=== PATIENT | female | born 1960 | race Asian ===

== ENCOUNTER 2017-09-17 15:45 | Inpatient (IN) | payer OTHER ==
[~2017-09-17] VITALS: Ht 162.6 cm; Wt 60.2 kg
[2017-09-17 17:40] VITALS: BP 164/84; RESP 17
[2017-09-17 17:41] VITALS: PULSE 66
[2017-09-17] MEDS ORDERED: HYDROCODONE/APAP (5/325) TAB PO PRN (19:30)
[2017-09-17] MEDS ORDERED: morphine 2 MG INJ IV PRN (19:30)
[2017-09-17] MEDS ORDERED: ZOLPIDEM 5 MG TAB PO PRN (19:30)
[2017-09-17] MEDS ORDERED: NACL 0.9% 3 ML SYG IV SCH (19:30)
[2017-09-17 19:51] VITALS: BP 167/90; RESP 17
[2017-09-17 20:04] VITALS: PULSE 62
[2017-09-17] MEDS: ATORVASTATIN 80 MG TAB PO SCH (22:05)
[2017-09-17] MEDS: ENOXAPARIN 40 MG/0.4 ML SYG SC SCH (22:07)
[2017-09-17] MEDS: SOD CHLORIDE 0.45% 1,000 ML IV SCH (22:09)
[2017-09-18] VITALS (12 sets, daily range): BP systolic 138–167; BP diastolic 75–91; PULSE 60–79; RESP 17–18
[2017-09-18] MEDS ORDERED: ASPIRIN 81 MG TAB PO ONE ×2 (04:00→04:17)
[2017-09-18] MEDS: ACETAMINOPHEN 325 MG TAB PO PRN (04:05)
--- NOTE | 2017-09-18 04:49 | RADRPT ---
AMENDMENT: 09/18/2017 7:52:32 AM Sophia Naik M.d Results were called to [place] at 09/18/2017 4:52 AM PROCEDURE: CT Brain without contrast. CLINICAL INDICATION: Right-sided weakness TECHNIQUE: A CT of the brain was performed on a GE 64-slice CT scanner utilizing axial imaging fr om the skull base through the vertex without IV contrast. Multiplanar reformatted images were made. Images were reviewed on a PACS workstation. The CTDIvol is 45.01 mGy and the DLP is 720.23 mGycm. One or more of the following dose reduction techniques were used: automated exposure control, adju stment of the mA and/or kV according to patient size, or use of iterative reconstruction technique. COMPARISON: None FINDINGS: Focal hypodensity is seen in the posterior left basal ganglia. There is no intracranial hemorrhage, mass effect, or midline shift. No extra-axial fluid collection is seen. The ventricles and sulci ar e normal in size and configuration. The rodrigues white matter differentiation appears well-preserved. Th e brainstem and posterior fossa are normal. There is deformity of the right lamina papyracea. Mild maxillary sinus mucosal thickening is noted. The calvarium is intact. IMPRESSION: 1. Probable subacute left basal ganglia infarct. No evidence of intracranial hemorrhage. RPTAT: HCNS Physician Carissa Date Time Electronically viewed and signed by Physician Carissa on 09/18/2017 04:52 /
--- NOTE | 2017-09-18 07:35 | HP ---
Date/Time of Note Date/Time of Note DATE: 09/18/17 TIME: 07:27 Assessment/Plan VTE Prophylaxis VTE Prophylaxis Intervention: heparin Lines/Catheters [facility] Saline Lock Urinary Cath still in place: No Assessment/Plan Assessment/Plan 1. Acute left-sided CVA, with mild right upper and lower extremity weakness and slight decreased sensation to light touch -Aspirin, statin, subcutaneous heparin for DVT prophylaxis -MRI of the brain and bilateral carotid Doppler ultrasound and a 2D echo -Physical therapy evaluation -Neurology consult -Blood pressure has been in the 160s/90. Given symptoms started about 24 hours ago, can safely use BP meds if blood pressure is not controlled HPI/ROS Admit Date/Time Admit Date/Time Sep 17, 2017 at 17:27 Hx of Present Illness This is a 57-year-old female with no significant past medical history who initially presented to an outside hospital complaining of dizziness/ lightheadedness and right upper and lower extremity weakness 1 day. Denied facial droop, slurred speech or visual disturbance. Her son who is at the bedside however stated that yesterday morning he noticed slight slurred speech when he spoke over the phone. Patient was transferred to [facility] because of insurance reasons. Head CT at the outside hospital showed no acute findings. Once patient was admitted here, per nursing she had some facial asymmetry and complaints of worsening right-sided weakness. Head CT obtained at that time which showed a small subacute left basal ganglia infarct. PMH/Family/Social Past Medical History Medical History: no pertinent history Past Surgical History Past Surgical Hx: no surgical history Social History Alcohol Use: none Smoking Status: Current every day smoker Drug Use: none Exam/Review of Systems Vital Signs Vitals Vital Signs Date Time Temp Pulse Resp B/P Pulse Ox O2 Delivery O2 Flow Rate FiO2 09/18/17 07:00 98.4 68 17 165/86 94 Exam Constitutional: alert, oriented, well developed Head: atraumatic, normocephalic Eyes: EOMI, PERRL Respiratory: clear to auscultation, normal air movement Cardiovascular: nl pulses, regular rate and rhythm Gastrointestinal: non-tender, soft Extremities: normal pulses Neurological: other (Slightly decreased strength and slight decreased sensation to light touch on both upper and lower extremity. 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.) Labs Result Diagram: 09/18/17 0536 09/18/17 0536 Medications Medications Current Medications Sodium Chloride (1/2 NS) 1,000 ml @ 100 mls/hr Q10H IV Last administered on 22:09; Admin Dose 100 MLS/HR; Start 09/17/17 at 19:22 Ondansetron HCl (Zofran Inj) 4 mg Q6H PRN IV NAUSEA AND/OR VOMITING; Start at 19:30 Acetaminophen (Tylenol Tab) 650 mg Q6H PRN PO PAIN LEVEL 1-3 OR FEVER Last administered on 09/18/17 04:05; Admin Dose 650 MG; Start 09/17/17 at 19:30 Acetaminophen/ Hydrocodone Bitart ([place] (5/325)) 1 tab Q6H PRN PO MODERATE PAIN LEVEL 4-6; Start 09/17/17 at 19:30 Morphine Sulfate (morphine) 2 mg Q4H PRN IV SEVERE PAIN LEVEL 7-10; Start at 19:30 Zolpidem Tartrate (Ambien) 5 mg QHS PRN PO SLEEP; Start 09/17/17 at 19:30 Enoxaparin Sodium (Lovenox) 40 mg DAILY@21 SC Last administered on 09/17/17 22:07; Admin Dose 40 MG; Start 09/17/17 at 21:00 Aspirin (Ecotrin) 325 mg DAILY PO ; Start 09/18/17 at 09:00 Atorvastatin Calcium (Lipitor) 80 mg HS PO Last administered on 09/17/17 22: 05; Admin Dose 80 MG; Start 09/17/17 at 21:00 Aspirin (Halfprin) 81 mg DAILY PO ; Start 09/19/17 at 09:00 MAG TORRES MD Sep 18, 2017 07:35
[2017-09-18] MEDS: SOD CHLORIDE 0.45% 1,000 ML IV SCH ×2 (09:00→15:22)
--- NOTE | 2017-09-18 10:31 | RADRPT ---
PROCEDURE: US carotid arteries. CLINICAL INDICATION: Dizziness. Cerebrovascular accident. Right-sided weakness. TECHNIQUE: Multiple sonographic images of the carotid arteries and vertebral arteries were obtaine d utilizing rodrigues scale, duplex, and color-flow imaging. The images were reviewed on a PACS workstati on. COMPARISON: No prior studies are available for comparison. FINDINGS: Evaluation of the right carotid bifurcation region reveals mild atherosclerotic disease. Evaluation of the left carotid bifurcation region reveals mild atherosclerotic disease. There is antegrade flow within the vertebral arteries bilaterally. RIGHT CAROTID MEASUREMENTS: Common Carotid [id number] (cm/sec) Internal Carotid Artery 57 (cm/sec) External Carotid Artery 65 (cm/sec) Vertebral Artery 50 (cm/sec) Internal Carotid/Common Carotid1.1 LEFT CAROTID MEASUREMENTS: Common Carotid [id number] (cm/sec) Internal Carotid Artery 62 (cm/sec) External Carotid Artery 31 (cm/sec) Vertebral Artery 40 (cm/sec) Internal Carotid/Common Carotid1.1 Validated velocity measurements with angiographic measurements. Velocity criteria are extrapolated f rom diameter data as defined by the Society of Radiologists in Ultrasound Consensus Conference. Radi ology 2003; 229;340-346. This study does indirectly reference the measurement of the distal ICA ganga meter as the denominator for stenosis measurement. IMPRESSION: 1. Less than 50% stenosis bilaterally in the internal carotid arteries. 2. Normal antegrade flow in the vertebral arteries bilaterally. RPTAT: QQ SRU Consensus Conference Criteria for the Diagnosis of Carotid Artery Stenosis* Degree of Stenosis, % ICA PSV, cm/sec Plaque Estimate, % ICA/CCA PSV Ratio Normal <125 None <2.0 <50 <125 <50 <2.0 50 69 125-230 >50 2.0-4.0 >70 but less than near occlusion >230 >50 <4.0 Near occlusion High, low, or undetectable Visible Variable Total occlusion Undetectable Visible, no detectable lumen Not applicable *Cartoid artery stenosis: rodrigues-scale and Doppler US diagnosis. Society of Radiologists in Ultrasound Consensus Conference. Radiology 2003; 229: 340-346 .Aayush John MD, Date Time Electronically viewed and signed by .Aayush John MD, on 09/18/2017 10:31 .R/
[2017-09-18] MEDS: ASPIRIN (EC) 325 MG TAB PO SCH (10:56)
--- NOTE | 2017-09-18 11:03 | PN ---
Date/Time of Note Date/Time of Note DATE: 09/18/17 TIME: 10:59 Assessment/Plan VTE Prophylaxis VTE Prophylaxis Intervention: LMWH Lines/Catheters IV [facility]ter Type (from [facility] Saline Lock Urinary Cath still in place: No Assessment/Plan Chief Complaint/Hosp Course 57-year-old female with no significant past medical history who was transferred from OSH for dizziness/lightheadedness/right upper and lower extremity weakness 1 day duration. 1.Probable subacute left basal ganglia infarct. No evidence of intracranial hemorrhage. -Continue with the full stroke workup including MRI/MRI brain, MRA neck and 2D echocardiogram. -PT/OT/ST eval and treatment. -Aspirin/statin/diabetic management. Goal blood pressure ~140/90 -Neurology consult. 2. Adult onset diabetes. A1c 7.2. -Accu-Cheks/insulin in-house. -Metformin upon discharge. Carb controlled diet, diabetic education. 3. Dyslipidemia. -Continue statin. Prophylaxis: Lovenox. Patient was seen in collaboration with . Problems: Subjective 24 Hr Interval Summary Free Text/Dictation Patient lying in bed. She denies any speech difficulties, facial asymmetry, vision changes or headache. Patient continued to have right lower extremity weakness. Right upper extremity weakness improved, however with a weak proposal development manager. Exam/Review of Systems Vital Signs Vitals Vital Signs Date Time Temp Pulse Resp B/P Pulse Ox O2 Delivery O2 Flow Rate FiO2 09/18/17 07:00 98.4 68 17 165/86 94 Intake and Output 09/17/17 09/17/17 09/18/17 15:00 23:00 07:00 Intake Total 1120 ml Balance 1120 ml Exam General: Well developed,adequately built female, not in any acute distress . HEENT: Normocephalic, Atraumatic, No laceration or hematoma; Eyes: PEERL, Conjunctiva clear, Anicteric sclera Neck: Supple without any lymphadenopathy, nontender, no JVD, no carotid bruits, trachea midline, no thyromegaly Cardiac: S1, S2 auscultated, regular rhythm and rate, no mumurs or gallop Pulmonary: Normal respiratory effort. Chest clear to auscultation bilaterally, no adventitious breath sounds GI: Abdomen normal to inspection. Soft, non tender, non- distended, no masses, no rebound tenderness or guarding. Bowel sounds active on all four quadrants Genitourinary: Deferred Extremities: Right lower extremity 4 out of 5. Right upper extremity with weak proposal development manager. No cyanosis, clubbing, or edema. Pulses [2+] bilaterally. Full ROM on all four extremities. Neurologic: Alert to person, place, time, and situation. Affect appropriate, intact sensation. Skin: Clean,dry, and intact. No ecchymosis, no rashes, or lesions Results Result Diagram: 09/18/1736 09/18/17 0536 Results 24 hrs Laboratory Tests Test 09/18/17 05:36 White Blood Count 9.7 Red Blood Count 4.46 Hemoglobin 13.0 Hematocrit 39.4 Mean Corpuscular Volume 88.3 Mean Corpuscular Hemoglobin 29.1 Mean Corpuscular Hemoglobin Concent 33.0 Red Cell Distribution Width 11.9 Platelet Count 286 Mean Platelet Volume 10.1 Neutrophils % 74.2 Lymphocytes % 14.6 L Monocytes % 8.0 Eosinophils % 2.4 Basophils % 0.5 Nucleated Red Blood Cells % 0.0 Neutrophils # 7.2 Lymphocytes # 1.4 Monocytes # 0.8 Eosinophils # 0.2 Basophils # 0.1 Nucleated Red Blood Cells # 0.0 Sodium Level 140 Potassium Level 3.7 Chloride Level 104 Carbon Dioxide Level 26 Anion Gap 14 Blood Urea Nitrogen 16 Creatinine 0.49 Glucose Level 158 Hemoglobin A1c 7.2 H Calcium Level 9.2 Phosphorus Level 4.6 Magnesium Level 1.9 Triglycerides Level 138 Cholesterol Level 213 H LDL Cholesterol, Calculated 134 HDL Cholesterol 51 Cholesterol/HDL Ratio 4.1 Medications Medications Current Medications Sodium Chloride (1/2 NS) 1,000 ml @ 100 mls/hr Q10H IV Last administered on 09:00; Admin Dose 100 MLS/HR; Start 09/17/17 at 19:22 Ondansetron HCl (Zofran Inj) 4 mg Q6H PRN IV NAUSEA AND/OR VOMITING; Start at 19:30 Acetaminophen (Tylenol Tab) 650 mg Q6H PRN PO PAIN LEVEL 1-3 OR FEVER Last administered on 09/18/17 04:05; Admin Dose 650 MG; Start 09/17/17 at 19:30 Acetaminophen/ Hydrocodone Bitart ([place] (5/325)) 1 tab Q6H PRN PO MODERATE PAIN LEVEL 4-6; Start 09/17/17 at 19:30 Morphine Sulfate (morphine) 2 mg Q4H PRN IV SEVERE PAIN LEVEL 7-10; Start at 19:30 Zolpidem Tartrate (Ambien) 5 mg QHS PRN PO SLEEP; Start 09/17/17 at 19:30 Enoxaparin Sodium (Lovenox) 40 mg DAILY@21 SC Last administered on 09/17/17 22:07; Admin Dose 40 MG; Start 09/17/17 at 21:00 Aspirin (Ecotrin) 325 mg DAILY PO Last administered on 09/18/17 10:56; Admin Dose 325 MG; Start 09/18/17 at 09:00 Atorvastatin Calcium (Lipitor) 80 mg HS PO Last administered on 09/17/17 22: 05; Admin Dose 80 MG; Start 09/17/17 at 21:00 Aspirin (Halfprin) 81 mg DAILY PO ; Start 09/19/17 at 09:00 PINEDA ERAZO NP Sep 18, 2017 11:03
--- NOTE | 2017-09-18 13:07 | CONS ---
Date/Time of Note Date/Time of Note DATE: 09/18/17 TIME: 13:02 Assessment/Plan Assessment/Plan Chief Complaint/Hosp Course 57 yo female with motor/sensory weakness with sub-acute left basal ganglia stroke. New onset DM. LDL 134 HBA1C 7/2% Recommendations: SBP less than 140/90 MRI Brain w/o contrast ASA 81 mg daily Diabetes education will require oral meds Lipitor 80 mg qhs ECHO w bubble PT/OT/Speech DVT ppx Problems: Consultation Date/Type/Reason Admit Date/Time Sep 17, 2017 at 17:27 Date of Consultation: Sep 18, 2017 Type of Consultation: Neurology Reason for Consultation CVA eval Referring Provider: PINEDA ERAZO NP Hx of Present Illness 57 yo female with no significant past medical history initially presented to an outside hospital c/o dizziness and LH with RUE and RLE weakness over 1 day. She felt like she was going to pass out described only weakness to right arm and leg , w gait imbalance, no dysphagia reported. She went to [facility] first and was tx here for further care. CTH showed subacute left basal ganglia stroke. right arm and leg weakness Past Medical History Medical History: no pertinent history Past Surgical History Past Surgical Hx: no surgical history Social History Alcohol Use: none Smoking Status: Current every day smoker Drug Use: none Exam/Review of Systems Vital Signs Vitals Vital Signs Date Time Temp Pulse Resp B/P Pulse Ox O2 Delivery O2 Flow Rate FiO2 09/18/17 11:15 97.9 72 17 167/84 97 Intake and Output 09/17/17 09/17/17 09/18/17 15:00 23:00 07:00 Intake Total 1120 ml Balance 1120 ml Exam Constitutional: alert, oriented, well developed Neurological: FLYING SHEAR OPERATOR II-XII intact (awake and alert oriented x3 follows commands no aphasia, CN: EOMI intact, VFF, right NLF flat palate upgoing uvula midline scm/trap intact Motor: right arm drift and right leg drift 4 +/5 strength l eft arm and leg are intact) Results Result Diagram: 09/18/17 0536 09/18/17 0536 Results 24 hrs Laboratory Tests Test 09/18/17 05:36 White Blood Count 9.7 Red Blood Count 4.46 Hemoglobin 13.0 Hematocrit 39.4 Mean Corpuscular Volume 88.3 Mean Corpuscular Hemoglobin 29.1 Mean Corpuscular Hemoglobin Concent 33.0 Red Cell Distribution Width 11.9 Platelet Count 286 Mean Platelet Volume 10.1 Neutrophils % 74.2 Lymphocytes % 14.6 L Monocytes % 8.0 Eosinophils % 2.4 Basophils % 0.5 Nucleated Red Blood Cells % 0.0 Neutrophils # 7.2 Lymphocytes # 1.4 Monocytes # 0.8 Eosinophils # 0.2 Basophils # 0.1 Nucleated Red Blood Cells # 0.0 Sodium Level 140 Potassium Level 3.7 Chloride Level 104 Carbon Dioxide Level 26 Anion Gap 14 Blood Urea Nitrogen 16 Creatinine 0.49 Glucose Level 158 Hemoglobin A1c 7.2 H Calcium Level 9.2 Phosphorus Level 4.6 Magnesium Level 1.9 Triglycerides Level 138 Cholesterol Level 213 H LDL Cholesterol, Calculated 134 HDL Cholesterol 51 Cholesterol/HDL Ratio 4.1 Thyroid Stimulating Hormone (TSH) 1.920 Medications Medications Current Medications Sodium Chloride (1/2 NS) 1,000 ml @ 100 mls/hr Q10H IV Last administered on 09:00; Admin Dose 100 MLS/HR; Start 09/17/17 at 19:22 Ondansetron HCl (Zofran Inj) 4 mg Q6H PRN IV NAUSEA AND/OR VOMITING; Start at 19:30 Acetaminophen (Tylenol Tab) 650 mg Q6H PRN PO PAIN LEVEL 1-3 OR FEVER Last administered on 09/18/17 04:05; Admin Dose 650 MG; Start 09/17/17 at 19:30 Acetaminophen/ Hydrocodone Bitart ([place] (5/325)) 1 tab Q6H PRN PO MODERATE PAIN LEVEL 4-6; Start 09/17/17 at 19:30 Morphine Sulfate (morphine) 2 mg Q4H PRN IV SEVERE PAIN LEVEL 7-10; Start at 19:30 Zolpidem Tartrate (Ambien) 5 mg QHS PRN PO SLEEP; Start 09/17/17 at 19:30 Enoxaparin Sodium (Lovenox) 40 mg DAILY@21 SC Last administered on 09/17/17 22:07; Admin Dose 40 MG; Start 09/17/17 at 21:00 Aspirin (Ecotrin) 325 mg DAILY PO Last administered on 09/18/17 10:56; Admin Dose 325 MG; Start 09/18/17 at 09:00 Atorvastatin Calcium (Lipitor) 80 mg HS PO Last administered on 09/17/17t 22: 05; Admin Dose 80 MG; Start 09/17/17 at 21:00 Aspirin (Halfprin) 81 mg DAILY PO ; Start 09/19/17 at 09:00 JOCELYNN ZENG MD Sep 18, 2017 13:06
--- NOTE | 2017-09-18 19:12 | RADRPT ---
PROCEDURE: MR Brain with and without intravenous contrast CLINICAL INDICATION: Concern for cerebrovascular accident. COMPARISON: CT 09/18/2017. TECHNIQUE: Multiplanar multi-sequence images of the brain were obtained before and after the unevent ful administration of 10 mL Magnevist intravenous contrast. Images acquired on a 3.0 Linda magnet. FINDINGS: Parenchyma: Restricted diffusion within the posterior limb left internal capsule, and dorsal globus pallidus, dorsal putamen, and posterior body of the corpus callosum, consistent with acute infarctio n in the left lateral lenticulostriate artery territory (an M1 artery branch). No hemorrhage or suspicious enhancement. Possible developmental venous anomaly in the right cerebell ar hemisphere. Ventricles: No ventricular enlargement or ventricular effacement. Extra-axial spaces: No herniation or midline shift. Orbits: Old fracture of the right lamina papyracea. Major intracranial flow voids: Preserved. Paranasal sinuses: Clear. Mastoids and middle ears: Clear. Bones: Normal. Extracranial soft tissues: Normal. Additional comment: None. IMPRESSION: 1. Acute infarction in the left basal ganglia. 2. No acute hemorrhage. Jone Carbone M.D. discussed critical results with the covering nurse via telephone at 7:09 PM on with read back confirmation. RPTAT: PP Physician Van Date Time Electronically viewed and signed by Physician Van on 09/19/2017 09:40 LG/
--- NOTE | 2017-09-18 19:13 | RADRPT ---
PROCEDURE: MR neck angiogram without contrast CLINICAL INDICATION: Acute infarction. COMPARISON: MRI and CT 09/18/2017. TECHNIQUE: Multiplanar multi-sequence angiogram of the neck was performed using 2-D time of flight technique. The extracranial arterial circulation was evaluated using a time resolved 3-D time of fli ght technique. Source images, maximum intensity projections, and sub-volume maximum intensity projec tion images were all reviewed. All stenosis measurements were made using NASCET methodology. Images acquired on a 3 Linda magnet. FINDINGS: Visualized aorta and the great vessel origins: No flow-limiting stenosis. Right common carotid artery: No flow-limiting stenosis. Right internal carotid artery: No flow-limiting stenosis. Right external carotid artery: No flow-limiting stenosis. Left common carotid artery: No flow-limiting stenosis. Left internal carotid artery:No flow-limiting stenosis. Left external carotid artery: No flow-limiting stenosis. Vertebral arteries: No flow-limiting stenosis. Vertebral artery dominance: Left dominant. Visualized intracranial circulation: No flow-limiting stenosis. Additional comment: None. IMPRESSION: No flow-limiting stenosis by NASCET criteria. RPTAT: PP Physician Van Date Time Electronically viewed and signed by Physician Van on 09/18/2017 19:13 /
--- NOTE | 2017-09-18 19:15 | RADRPT ---
PROCEDURE: MR cerebral angiogram without intravenous contrast CLINICAL INDICATION: Acute infarction. COMPARISON: MRI 09/18/2017. TECHNIQUE: MR angiogram of the head using 3D [id number]. Multiplanar reconstructions were obtai alma. Images acquired on a 3.0 Linda magnet. FINDINGS: Carotid arteries: No flow-limiting stenosis. Anterior cerebral arteries: No flow-limiting stenosis. Middle cerebral arteries: No flow-limiting stenosis. Posterior cerebral arteries: No flow-limiting stenosis. Anterior communicating artery: 2 mm right throughout Save outpouching arising from the left A1 A2 ju nction which may represent an infundibulum or small aneurysm (series 3, image 179).. Posterior communicating arteries: Diminutive. Basilar artery: No flow-limiting stenosis. Vertebral arteries: No flow-limiting stenosis. IMPRESSION: 1. No flow-limiting stenosis. 2. 2 mm outpouching arising from the left A1-A2 junction which may represent of infundibulum or smal l aneurysm. RPTAT: PP Physician Van Date Time Electronically viewed and signed by Physician Van on 09/18/2017 19:15 LG/
--- NOTE | 2017-09-18 19:15 | RADRPT ---
PROCEDURE: MR cerebral angiogram without intravenous contrast CLINICAL INDICATION: Acute infarction. COMPARISON: MRI 09/18/2017. TECHNIQUE: MR angiogram of the head using 3D [id number]. Multiplanar reconstructions were obtai alma. Images acquired on a 3.0 Linda magnet. FINDINGS: Carotid arteries: No flow-limiting stenosis. Anterior cerebral arteries: No flow-limiting stenosis. Middle cerebral arteries: No flow-limiting stenosis. Posterior cerebral arteries: No flow-limiting stenosis. Anterior communicating artery: 2 mm right throughout Save outpouching arising from the left A1 A2 ju nction which may represent an infundibulum or small aneurysm (series 3, image 179).. Posterior communicating arteries: Diminutive. Basilar artery: No flow-limiting stenosis. Vertebral arteries: No flow-limiting stenosis. IMPRESSION: 1. No flow-limiting stenosis. 2. 2 mm outpouching arising from the left A1-A2 junction which may represent of infundibulum or smal l aneurysm. RPTAT: PP Physician Van Date Time Electronically viewed and signed by Physician Van on 09/18/2017 19:15 LG/
--- NOTE | 2017-09-18 19:15 | RADRPT ---
PROCEDURE: MR cerebral angiogram without intravenous contrast CLINICAL INDICATION: Acute infarction. COMPARISON: MRI 09/18/2017. TECHNIQUE: MR angiogram of the head using 3D [id number]. Multiplanar reconstructions were obtai alma. Images acquired on a 3.0 Linda magnet. FINDINGS: Carotid arteries: No flow-limiting stenosis. Anterior cerebral arteries: No flow-limiting stenosis. Middle cerebral arteries: No flow-limiting stenosis. Posterior cerebral arteries: No flow-limiting stenosis. Anterior communicating artery: 2 mm right throughout Save outpouching arising from the left A1 A2 ju nction which may represent an infundibulum or small aneurysm (series 3, image 179).. Posterior communicating arteries: Diminutive. Basilar artery: No flow-limiting stenosis. Vertebral arteries: No flow-limiting stenosis. IMPRESSION: 1. No flow-limiting stenosis. 2. 2 mm outpouching arising from the left A1-A2 junction which may represent of infundibulum or smal l aneurysm. RPTAT: PP Physician Van Date Time Electronically viewed and signed by Physician Van on 09/18/2017 19:15 LG/
[2017-09-18] MEDS: ATORVASTATIN 80 MG TAB PO SCH (21:31)
[2017-09-18] MEDS: ENOXAPARIN 40 MG/0.4 ML SYG SC SCH (21:33)
[2017-09-19] VITALS (12 sets, daily range): BP systolic 136–167; BP diastolic 69–88; PULSE 60–87; RESP 17–18
[2017-09-19] MEDS: SOD CHLORIDE 0.45% 1,000 ML IV SCH ×4 (01:22→23:33)
[2017-09-19] MEDS: ASPIRIN (EC) 81 MG TAB PO SCH (08:50)
[2017-09-19] MEDS: ASPIRIN (EC) 325 MG TAB PO SCH (08:50)
[2017-09-19] MEDS: ONDANSETRON 4 MG INJ IV PRN (08:50)
--- NOTE | 2017-09-19 09:33 | PN ---
Date/Time of Note Date/Time of Note DATE: 09/19/17 TIME: 09:31 Assessment/Plan VTE Prophylaxis VTE Prophylaxis Intervention: LMWH Lines/Catheters IV C[facility]ter Type (from [facility] [place] Urinary Cath still in place: No Assessment/Plan Chief Complaint/Hosp Course 57-year-old female with no significant past medical history who was transferred from OSH for dizziness/lightheadedness/right upper and lower extremity weakness 1 day duration. 1.Left basal ganglia infarct. No evidence of intracranial hemorrhage. -Continue with PT/OT/ST eval and treatment. -Aspirin/statin/diabetic management. Goal blood pressure ~140/90 -F/u echo ,f/u neuro recs 2. DMII. A1c 7.2. -Accu-Cheks/insulin in-house. -Metformin upon discharge. Carb controlled diet, diabetic education. 3. Dyslipidemia. -Continue statin. Prophylaxis: Lovenox. DC planning to ARU in next 24 hrs. Patient was seen in collaboration with . Problems: Subjective 24 Hr Interval Summary Free Text/Dictation Doing well. Exam/Review of Systems Vital Signs Vitals Vital Signs Date Time Temp Pulse Resp B/P Pulse Ox O2 Delivery O2 Flow Rate FiO2 09/19/17 08:00 66 09/19/17 07:47 98.1 18 139/84 96 Intake and Output 09/18/17 09/18/17 09/19/17 15:00 23:00 07:00 Intake Total 1360 ml Balance 1360 ml Exam General: Well developed,adequately built female, not in any acute distress . HEENT: Normocephalic, Atraumatic, No laceration or hematoma; Eyes: PEERL, Conjunctiva clear, Anicteric sclera Neck: Supple without any lymphadenopathy, nontender, no JVD, no carotid bruits, trachea midline, no thyromegaly Cardiac: S1, S2 auscultated, regular rhythm and rate, no mumurs or gallop Pulmonary: Normal respiratory effort. Chest clear to auscultation bilaterally, no adventitious breath sounds GI: Abdomen normal to inspection. Soft, non tender, non- distended, no masses, no rebound tenderness or guarding. Bowel sounds active on all four quadrants Genitourinary: Deferred Extremities: Right lower extremity 4 out of 5. 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 No cyanosis, clubbing, or edema. Pulses [2+] bilaterally. Full ROM on all four extremities. Neurologic: Alert to person, place, time, and situation. Affect appropriate, intact sensation. Skin: Clean,dry, and intact. No ecchymosis, no rashes, or lesions Results Result Diagram: 09/18/17 0536 09/19/17 0710 Results 24 hrs Laboratory Tests Test 09/19/17 07:10 Sodium Level 143 Potassium Level 4.2 Chloride Level 108 Carbon Dioxide Level 26 Anion Gap 13 Blood Urea Nitrogen 12 Creatinine 0.49 Glucose Level 137 Calcium Level 9.1 Magnesium Level 2.0 Medications Medications Current Medications Sodium Chloride (1/2 NS) 1,000 ml @ 100 mls/hr Q10H IV Last administered on 05:09; Admin Dose 100 MLS/HR; Start 09/17/17 at 19:22 Ondansetron HCl (Zofran Inj) 4 mg Q6H PRN IV NAUSEA AND/OR VOMITING Last administered on 09/19/17 08:50; Admin Dose 4 MG; Start 09/17/17 at 19:30 Acetaminophen (Tylenol Tab) 650 mg Q6H PRN PO PAIN LEVEL 1-3 OR FEVER Last administered on 09/18/17 04:05; Admin Dose 650 MG; Start 09/17/17 at 19:30 Acetaminophen/ Hydrocodone Bitart ([place] (5/325)) 1 tab Q6H PRN PO MODERATE PAIN LEVEL 4-6; Start 09/17/17 at 19:30 Morphine Sulfate (morphine) 2 mg Q4H PRN IV SEVERE PAIN LEVEL 7-10; Start at 19:30 Zolpidem Tartrate (Ambien) 5 mg QHS PRN PO SLEEP; Start 09/17/17 at 19:30 Enoxaparin Sodium (Lovenox) 40 mg DAILY@21 SC Last administered on 09/18/17 21:33; Admin Dose 40 MG; Start 09/17/17 at 21:00 Aspirin (Ecotrin) 325 mg DAILY PO Last administered on 09/19/17 08:50; Admin Dose 325 MG; Start 09/18/17 at 09:00 Atorvastatin Calcium (Lipitor) 80 mg HS PO Last administered on 09/18/17 21: 31; Admin Dose 80 MG; Start 09/17/17 at 21:00 Aspirin (Halfprin) 81 mg DAILY PO Last administered on 09/19/17t 08:50; Admin Dose 81 MG; Start 09/19/17 at 09:00 PINEDA REAZO NP Sep 19, 2017 09:33
[2017-09-19] MEDS ORDERED: GLUCOSE GEL 15 GRAM TUBE PO PRN ×2 (10:30)
[2017-09-19] MEDS ORDERED: DEXTROSE 50% 50 ML SYRINGE IV PRN ×2 (10:30)
[2017-09-19] MEDS ORDERED: GLUCOSE GEL 15 GRAM TUBE BUCCAL PRN (10:30)
[2017-09-19] MEDS ORDERED: GLUCAGON 1 MG INJ IM PRN (10:30)
--- NOTE | 2017-09-19 11:34 | CONS ---
Date/Time of Note Date/Time of Note DATE: 09/19/17 TIME: 11:33 Consult Date/Type/Reason Admit Date/Time Sep 17, 2017 at 17:27 Initial Consult Date 09/18/17 Type of Consultation: Neurology Reason for Consultation left basal ganglia stroke Ordering Provider: PINEDA ERAZO NP Subjective residual right arm and leg weakness remains stable working well with OT Objective Vital Signs Date Time Temp Pulse Resp B/P Pulse Ox O2 Delivery O2 Flow Rate FiO2 09/19/17 11:29 98.7 81 18 136/69 94 Intake and Output 09/18/17 09/18/17 09/19/17 15:00 23:00 07:00 Intake Total 1360 ml Balance 1360 ml Exam Constitutional: alert, oriented, well developed 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 (awake and alert oriented x3 follows commands no aphasia, CN: EOMI intact, VFF, right NLF flat palate upgoing uvula midline scm/trap intact Motor: right arm drift and right leg drift 4 +/5 strength l eft arm and leg are intact) Results/Medications Result Diagram: 09/18/17 0536 09/19/17 0710 Results 24 hrs Laboratory Tests Test 09/19/17 07:10 Sodium Level 143 Potassium Level 4.2 Chloride Level 108 Carbon Dioxide Level 26 Anion Gap 13 Blood Urea Nitrogen 12 Creatinine 0.49 Glucose Level 137 Calcium Level 9.1 Magnesium Level 2.0 Medications Current Medications Sodium Chloride (1/2 NS) 1,000 ml @ 100 mls/hr Q10H IV Last administered on 05:09; Admin Dose 100 MLS/HR; Start 09/17/17 at 19:22 Ondansetron HCl (Zofran Inj) 4 mg Q6H PRN IV NAUSEA AND/OR VOMITING Last administered on 09/19/17 08:50; Admin Dose 4 MG; Start 09/17/17 at 19:30 Acetaminophen (Tylenol Tab) 650 mg Q6H PRN PO PAIN LEVEL 1-3 OR FEVER Last administered on 09/18/17 04:05; Admin Dose 650 MG; Start 09/17/17 at 19:30 Acetaminophen/ Hydrocodone Bitart ([place] (5/325)) 1 tab Q6H PRN PO MODERATE PAIN LEVEL 4-6; Start 09/17/17 at 19:30 Morphine Sulfate (morphine) 2 mg Q4H PRN IV SEVERE PAIN LEVEL 7-10; Start at 19:30 Zolpidem Tartrate (Ambien) 5 mg QHS PRN PO SLEEP; Start 09/17/17 at 19:30 Enoxaparin Sodium (Lovenox) 40 mg DAILY@21 SC Last administered on 09/18/17 21:33; Admin Dose 40 MG; Start 09/17/17 at 21:00 Atorvastatin Calcium (Lipitor) 80 mg HS PO Last administered on 09/18/17 21: 31; Admin Dose 80 MG; Start 09/17/17 at 21:00 Aspirin (Halfprin) 81 mg DAILY PO Last administered on 09/19/17 08:50; Admin Dose 81 MG; Start 09/19/17 at 09:00 Diagnostic Test (Pha) (Accu-Chek) 1 ea 02 XX ; Start 09/20/17 at 02:00 Diagnostic Test (Pha) (Accu-Chek) 1 ea 02 XX ; Start 09/20/17 at 02:00 Miscellaneous Information 1 ea NOTE XX ; Start 09/19/17 at 10:30 Glucose (Glutose) 15 gm Q15M PRN PO DECREASED GLUCOSE; Start 09/19/17 at 10:30 Glucose (Glutose) 22.5 gm Q15M PRN PO DECREASED GLUCOSE; Start 09/19/17 at 10: 30 Dextrose (D50w Syringe) 25 ml Q15M PRN IV DECREASED GLUCOSE; Start 09/19/17 at 10:30 Dextrose (D50w Syringe) 50 ml Q15M PRN IV DECREASED GLUCOSE; Start 09/19/17 at 10:30 Glucagon (Glucagen) 1 mg Q15M PRN IM DECREASED GLUCOSE; Start 09/19/17 at 10: 30 Glucose (Glutose) 15 gm Q15M PRN BUCCAL DECREASED GLUCOSE; Start 09/19/17 at 10:30 Assessment/Plan Chief Complaint/Hosp Course 57 yo female with motor/sensory weakness with sub-acute left basal ganglia stroke. New onset DM. LDL 134 HBA1C 7/2% Recommendations: SBP less than 140/90 MRI Brain w/o contrast- confirms left basal ganglia stroke ASA 81 mg daily Diabetes education will require oral meds Lipitor 80 mg qhs ECHO w bubble PT/OT/Speech DVT ppx- AR recommended pending an ECHO, cleared for AR Problems: JOCELYNN ZENG MD Sep 19, 2017 11:34
[2017-09-19] MEDS: INSULIN ASPART [NOVOLOG] 3 ML PEN SC SCH ×3 (12:18→21:00)
--- NOTE | 2017-09-19 13:55 | RADRPT ---
Echocardiogram Report Patient Name: ARABELLA JUAN Gender: Female Date: 1960 Study Date: 18-Sep-2017 Celebrity Manager: Mariya Murillo MARIA ELENA Location: 505 Ref. Physician: RALEIGH KIMBROUGH Quality: Good Procedures: Transthoracic echocardiogram with complete 2D, M-Mode, and doppler examination. Indications: Cerebrovascular Accident. 2D/M Mode Doppler Measurement Value Normal Ranges Measurement Value Normal Ranges LVIDd 2D 4.1 3.5 - 5.6 cm AV Peak Les 0.8 m/sec LVIDs 2D 2.5 2.1 - 4.1 cm AV Peak PG 2.8 mmHg LVPWd 2D 1.3 0.6 - 1.1 cm LVOT Peak Les 0.6 m/sec IVSd 2D 1.3 0.6 - 1.1 cm LVOT Peak PG 1.4 mmHg AoR Diam 2D 3.3 2.0 - 3.7 cm MV E Peak Les 0.5 m/sec EDV 2D 75.7 cm3 MV A Peak Les 0.7 m/sec ESV 2D 16.4 cm3 MV E/A 0.7 LA Dimen 2D 2.8 2.3 - 4.0 cm MV Decel Time 194 msec MV Decel [place] 2 MV E/A 0.7 TR Peak Les 1.9 m/sec TR Peak PG 14.5 mmHg RVSP 18.0 mmHg Findings Left Ventricle: Normal left ventricular systolic function. Normal left ventricular cavity size. Mild concentric left ventricular hypertrophy. Ejection fraction is visually estimated at 5560 %. Tissue Doppler/Mitral Doppler indices are consistent with impaired relaxation (Stage I diastolic dysfunction). Right Ventricle: Normal right ventricular size. Normal right ventricular systolic function. Left Atrium: The left atrium is normal in size. Right Atrium: The right atrium is normal in size. Mitral Valve: Mitral valve leaflets appear mildly thickened. Mild mitral annular calcification. Trace mitral regurgitation. Aortic Valve: Normal appearance of the aortic valve. No significant aortic stenosis or insufficiency. Tricuspid Valve: Normal appearance of the tricuspid valve. Estimated peak PA systolic pressure 18 mmHg. There is trace tricuspid regurgitation. Pulmonic Valve: Normal pulmonic valve appearance. There is trace pulmonic regurgitation. Pericardium: Normal pericardium with no significant pericardial effusion. Aorta: Normal aortic root. IVC: Normal size and normal respiratory collapse consistent with normal right atrial pressure. Conclusions 1.The left ventricle is normal in size and systolic function. 2.Estimated left ventricular ejection fraction of 55-60%. 3.Mild concentric left ventricular hypertrophy. Grade 1 diastolic dysfunction. Electronically Signed By: Suresh Sosa 19-Sep-2017 13:55:32 -0700 Patient Name: ARABELLA JUAN Study Date: 18-Sep-2017 [id number]
[2017-09-19] MEDS: ATORVASTATIN 80 MG TAB PO SCH (21:38)
[2017-09-19] MEDS: ENOXAPARIN 40 MG/0.4 ML SYG SC SCH (21:42)
[2017-09-20] VITALS (13 sets, daily range): BP systolic 116–168; BP diastolic 65–89; PULSE 63–87; RESP 16–18; Ht 162.6 cm; Wt 60.2 kg
[2017-09-20] MEDS: ACCU-CHEK XX SCH (02:00)
[2017-09-20] MEDS ORDERED: hydrALAzine 20 MG INJ IV PRN (02:00)
[2017-09-20] MEDS ORDERED: ACCU-CHEK XX SCH (02:00)
[2017-09-20] MEDS: ACETAMINOPHEN 325 MG TAB PO PRN ×2 (05:42→12:15)
[2017-09-20] MEDS: ONDANSETRON 4 MG INJ IV PRN ×2 (05:42→12:15)
[2017-09-20] MEDS: SOD CHLORIDE 0.45% 1,000 ML IV SCH (07:22)
[2017-09-20] MEDS: INSULIN ASPART [NOVOLOG] 3 ML PEN SC SCH ×4 (08:31→20:28)
[2017-09-20] MEDS: ASPIRIN (EC) 81 MG TAB PO SCH (09:24)
--- NOTE | 2017-09-20 11:30 | PDOCDIS ---
Discharge Instructions CONDITION Patient Condition: Stable HOME CARE INSTRUCTIONS: Special Diet: Carb controlled/low chol FOLLOW UP/APPOINTMENTS Follow-up Plan PT/OT/Eval &tx Follow-up with PCP after discharge from rehab. PINEDA ERAZO NP Sep 20, 2017 11:30
[2017-09-20] MEDS ORDERED: HYDR-3498 PO (11:32)
[2017-09-20] MEDS ORDERED: ZOLP5TAB PO (11:32)
[2017-09-20] MEDS ORDERED: METF500T4 PO (11:32)
[2017-09-20] MEDS ORDERED: NOVO3I SC (11:32)
[2017-09-20] MEDS ORDERED: ATOR80TA75 PO (11:32)
[2017-09-20] MEDS ORDERED: ASPI-664 PO (11:32)
--- NOTE | 2017-09-20 11:33 | DS ---
Date/Time of Note Date/Time of Note DATE: 09/20/17 TIME: 11:33 Discharge Summary Admission/Discharge Info Admit Date/Time Sep 17, 2017 at 17:27 Discharge Date/Time Hx of Present Illness This is a 57-year-old female with no significant past medical history who initially presented to an outside hospital complaining of dizziness/ lightheadedness and right upper and lower extremity weakness 1 day. Denied facial droop, slurred speech or visual disturbance. Her son who is at the bedside however stated that yesterday morning he noticed slight slurred speech when he spoke over the phone. Patient was transferred to [facility] because of insurance reasons. Head CT at the outside hospital showed no acute findings. Once patient was admitted here, per nursing she had some facial asymmetry and complaints of worsening right-sided weakness. Head CT obtained at that time which showed a small subacute left basal ganglia infarct. Hospital Course 57 yo female with motor/sensory weakness with sub-acute left basal ganglia stroke. New onset DM. LDL 134 HBA1C 7/2% Recommendations: SBP less than 140/90 MRI Brain w/o contrast- confirms left basal ganglia stroke ASA 81 mg daily Diabetes education will require oral meds Lipitor 80 mg qhs ECHO w bubble PT/OT/Speech DVT ppx- AR recommended pending an ECHO, cleared for AR Home Meds Active Scripts Metformin* (Glucophage*) 500 Mg Tab, 500 MG PO WITH BREAKFAST DINNE, #30 TAB Prov:PINEDA ERAZO V. DEPARTMENT HELPER 09/20/17 Insulin Aspart* (Novolog Insulin Pen*) 100 Unit/Ml Soln, 0 UNIT SC WITH MEALS BEDTIME, #1 Prov:PINEDA ERAZO V. DEPARTMENT HELPER 09/20/17 Zolpidem Tartrate (Ambien Anival) 5 Mg Tablet, 5 MG PO QHS Y for SLEEP, #30 TAB Prov:ERAZONARESHA Gamal. DEPARTMENT HELPER 09/20/17 Hydrocodone Bit-Acetaminophen (Hydrocodone Bit-APAP) 5-325MG Tablet, 1 TAB PO Q6H Y for MODERATE PAIN LEVEL 4-6, #30 TAB Prov:ERAZONARESHA V. DEPARTMENT HELPER 09/20/17 Aspirin* (Aspirin* EC) 81 Mg Tablet.dr, 81 MG PO DAILY, #30 TAB Prov:ERAZOPINEDA V. DEPARTMENT HELPER 09/20/17 Atorvastatin* (Atorvastatin*) 80 Mg Tablet, 80 MG PO HS, #60 TAB Prov:PINEDA ERAZO NP 09/20/17 Follow-up Plan PT/OT/Eval &tx Follow-up with PCP after discharge from rehab. Primary Care Provider Care Physician No Primary Pending Labs Laboratory Tests Test 09/19/17 12:10 09/19/17 17:06 09/19/17 21:36 09/20/17 05:27 Bedside Glucose 149mg/dL (70-220) 126mg/dL (70-220) 135mg/dL (70-220) 165mg/dL (70-220) Test 09/20/17 08:05 Bedside Glucose 165mg/dL (70-220) PINEDA ERAZO NP Sep 20, 2017 11:33
--- NOTE | 2017-09-20 11:33 | DS ---
Date/Time of Note Date/Time of Note DATE: 09/20/17 TIME: 11:33 Discharge Summary Admission/Discharge Info Admit Date/Time Sep 17, 2017 at 17:27 Discharge Date/Time Hx of Present Illness This is a 57-year-old female with no significant past medical history who initially presented to an outside hospital complaining of dizziness/ lightheadedness and right upper and lower extremity weakness 1 day. Denied facial droop, slurred speech or visual disturbance. Her son who is at the bedside however stated that yesterday morning he noticed slight slurred speech when he spoke over the phone. Patient was transferred to [facility] because of insurance reasons. Head CT at the outside hospital showed no acute findings. Once patient was admitted here, per nursing she had some facial asymmetry and complaints of worsening right-sided weakness. Head CT obtained at that time which showed a small subacute left basal ganglia infarct. Hospital Course 57 yo female with motor/sensory weakness with sub-acute left basal ganglia stroke. New onset DM. LDL 134 HBA1C 7/2% Recommendations: SBP less than 140/90 MRI Brain w/o contrast- confirms left basal ganglia stroke ASA 81 mg daily Diabetes education will require oral meds Lipitor 80 mg qhs ECHO w bubble PT/OT/Speech DVT ppx- AR recommended pending an ECHO, cleared for AR Home Meds Active Scripts Metformin* (Glucophage*) 500 Mg Tab, 500 MG PO WITH BREAKFAST DINNE, #30 TAB Prov:PINEDA ERAZO V. DRUG ABUSE WORKER 09/20/17 Insulin Aspart* (Novolog Insulin Pen*) 100 Unit/Ml Soln, 0 UNIT SC WITH MEALS BEDTIME, #1 Prov:PINEDA ERAOZ V. DRUG ABUSE WORKER 09/20/17 Zolpidem Tartrate (Ambien Anival) 5 Mg Tablet, 5 MG PO QHS Y for SLEEP, #30 TAB Prov:ERAZONARESHA Gamal. DRUG ABUSE WORKER 09/20/17 Hydrocodone Bit-Acetaminophen (Hydrocodone Bit-APAP) 5-325MG Tablet, 1 TAB PO Q6H Y for MODERATE PAIN LEVEL 4-6, #30 TAB Prov:ERAZONARESHA V. DRUG ABUSE WORKER 09/20/17 Aspirin* (Aspirin* EC) 81 Mg Tablet.dr, 81 MG PO DAILY, #30 TAB Prov:ERAZOPINEDA V. DRUG ABUSE WORKER 09/20/17 Atorvastatin* (Atorvastatin*) 80 Mg Tablet, 80 MG PO HS, #60 TAB Prov:PINEDA ERAZO NP 09/20/17 Follow-up Plan PT/OT/Eval &tx Follow-up with PCP after discharge from rehab. Primary Care Provider Care Physician No Primary Pending Labs Laboratory Tests Test 09/19/17 12:10 09/19/17 17:06 09/19/17 21:36 09/20/17 05:27 Bedside Glucose 149mg/dL (70-220) 126mg/dL (70-220) 135mg/dL (70-220) 165mg/dL (70-220) Test 09/20/17 08:05 Bedside Glucose 165mg/dL (70-220) PINEDA ERAZO NP Sep 20, 2017 11:33
--- NOTE | 2017-09-20 11:33 | DS ---
Date/Time of Note Date/Time of Note DATE: 09/20/17 TIME: 11:33 Discharge Summary Admission/Discharge Info Admit Date/Time Sep 17, 2017 at 17:27 Discharge Date/Time Hx of Present Illness This is a 57-year-old female with no significant past medical history who initially presented to an outside hospital complaining of dizziness/ lightheadedness and right upper and lower extremity weakness 1 day. Denied facial droop, slurred speech or visual disturbance. Her son who is at the bedside however stated that yesterday morning he noticed slight slurred speech when he spoke over the phone. Patient was transferred to [facility] because of insurance reasons. Head CT at the outside hospital showed no acute findings. Once patient was admitted here, per nursing she had some facial asymmetry and complaints of worsening right-sided weakness. Head CT obtained at that time which showed a small subacute left basal ganglia infarct. Hospital Course 57 yo female with motor/sensory weakness with sub-acute left basal ganglia stroke. New onset DM. LDL 134 HBA1C 7/2% Recommendations: SBP less than 140/90 MRI Brain w/o contrast- confirms left basal ganglia stroke ASA 81 mg daily Diabetes education will require oral meds Lipitor 80 mg qhs ECHO w bubble PT/OT/Speech DVT ppx- AR recommended pending an ECHO, cleared for AR Home Meds Active Scripts Metformin* (Glucophage*) 500 Mg Tab, 500 MG PO WITH BREAKFAST DINNE, #30 TAB Prov:PINEDA ERAZO V. ROCK DRILL OPERATOR 09/20/17 Insulin Aspart* (Novolog Insulin Pen*) 100 Unit/Ml Soln, 0 UNIT SC WITH MEALS BEDTIME, #1 Prov:PINEDA ERAZO V. ROCK DRILL OPERATOR 09/20/17 Zolpidem Tartrate (Ambien Anival) 5 Mg Tablet, 5 MG PO QHS Y for SLEEP, #30 TAB Prov:ERAZONARESHA Gamal. ROCK DRILL OPERATOR 09/20/17 Hydrocodone Bit-Acetaminophen (Hydrocodone Bit-APAP) 5-325MG Tablet, 1 TAB PO Q6H Y for MODERATE PAIN LEVEL 4-6, #30 TAB Prov:ERAZONARESHA V. ROCK DRILL OPERATOR 09/20/17 Aspirin* (Aspirin* EC) 81 Mg Tablet.dr, 81 MG PO DAILY, #30 TAB Prov:ERAZOPINEDA V. ROCK DRILL OPERATOR 09/20/17 Atorvastatin* (Atorvastatin*) 80 Mg Tablet, 80 MG PO HS, #60 TAB Prov:PINEDA ERAZO NP 09/20/17 Follow-up Plan PT/OT/Eval &tx Follow-up with PCP after discharge from rehab. Primary Care Provider Care Physician No Primary Pending Labs Laboratory Tests Test 09/19/17 12:10 09/19/17 17:06 09/19/17 21:36 09/20/17 05:27 Bedside Glucose 149mg/dL (70-220) 126mg/dL (70-220) 135mg/dL (70-220) 165mg/dL (70-220) Test 09/20/17 08:05 Bedside Glucose 165mg/dL (70-220) PINEDA ERAZO NP Sep 20, 2017 11:33
--- NOTE | 2017-09-20 13:44 | PN ---
Date/Time of Note Date/Time of Note DATE: 09/20/17 TIME: 13:43 Assessment/Plan VTE Prophylaxis VTE Prophylaxis Intervention: LMWH Lines/Catheters IV [facility] Type (from [facility]): Peripheral IV Urinary Cath still in place: No Assessment/Plan Chief Complaint/Hosp Course 57-year-old female with no significant past medical history who was transferred from OSH for dizziness/lightheadedness/right upper and lower extremity weakness 1 day duration. 1.Left basal ganglia infarct. No evidence of intracranial hemorrhage. -Neuro eval appreciated. Continue with PT/OT/ST eval and treatment. -Aspirin/statin/diabetic management. Goal blood pressure ~140/90 2. DMII. A1c 7.2. -Accu-Cheks/insulin in-house. -Metformin upon discharge. Carb controlled diet, diabetic education. 3. Dyslipidemia. -Continue statin. Prophylaxis: Lovenox. DC planning to ARU once accepted by insurance. Patient was seen in collaboration with . Problems: Subjective 24 Hr Interval Summary Free Text/Dictation No acute distress. Exam/Review of Systems Vital Signs Vitals Vital Signs Date Time Temp Pulse Resp B/P Pulse Ox O2 Delivery O2 Flow Rate FiO2 09/20/17 12:00 77 09/20/17 11:33 98.2 17 116/74 95 Intake and Output 09/19/17 09/19/17 09/20/17 15:00 23:00 07:00 Intake Total 800 ml Balance 800 ml Exam General: Well developed,adequately built female, not in any acute distress . HEENT: Normocephalic, Atraumatic, No laceration or hematoma; Eyes: PEERL, Conjunctiva clear, Anicteric sclera Neck: Supple without any lymphadenopathy, nontender, no JVD, no carotid bruits, trachea midline, no thyromegaly Cardiac: S1, S2 auscultated, regular rhythm and rate, no mumurs or gallop Pulmonary: Normal respiratory effort. Chest clear to auscultation bilaterally, no adventitious breath sounds GI: Abdomen normal to inspection. Soft, non tender, non- distended, no masses, no rebound tenderness or guarding. Bowel sounds active on all four quadrants Genitourinary: Deferred Extremities: Right lower extremity 4 out of 5. 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 No cyanosis, clubbing, or edema. Pulses [2+] bilaterally. Full ROM on all four extremities. Neurologic: Alert to person, place, time, and situation. Affect appropriate, intact sensation. Skin: Clean,dry, and intact. No ecchymosis, no rashes, or lesions Results Result Diagram: 09/18/17 0536 09/19/17 0710 Results 24 hrs Laboratory Tests Test 09/19/17 17:06 09/19/17 21:36 09/20/17 05:27 09/20/17 08:05 Bedside Glucose 126 135 165 165 Test 09/20/17 12:09 Bedside Glucose 144 Medications Medications Current Medications Sodium Chloride (1/2 NS) 1,000 ml @ 100 mls/hr Q10H IV Last administered on 23:33; Admin Dose 100 MLS/HR; Start 09/17/17 at 19:22 Ondansetron HCl (Zofran Inj) 4 mg Q6H PRN IV NAUSEA AND/OR VOMITING Last administered on 09/20/17 12:15; Admin Dose 4 MG; Start 09/17/17 at 19:30 Acetaminophen (Tylenol Tab) 650 mg Q6H PRN PO PAIN LEVEL 1-3 OR FEVER Last administered on 09/20/17 12:15; Admin Dose 650 MG; Start 09/17/17 at 19:30 Acetaminophen/ Hydrocodone Bitart ([place] (5/325)) 1 tab Q6H PRN PO MODERATE PAIN LEVEL 4-6; Start 09/17/17 at 19:30 Morphine Sulfate (morphine) 2 mg Q4H PRN IV SEVERE PAIN LEVEL 7-10; Start at 19:30 Zolpidem Tartrate (Ambien) 5 mg QHS PRN PO SLEEP; Start 09/17/17 at 19:30 Enoxaparin Sodium (Lovenox) 40 mg DAILY@21 SC Last administered on 09/19/17 21:42; Admin Dose 40 MG; Start 09/17/17 at 21:00 Atorvastatin Calcium (Lipitor) 80 mg HS PO Last administered on 09/19/17 21: 38; Admin Dose 80 MG; Start 09/17/17 at 21:00 Aspirin (Halfprin) 81 mg DAILY PO Last administered on 09/20/17 09:24; Admin Dose 81 MG; Start 09/19/17 at 09:00 Diagnostic Test (Pha) (Accu-Chek) 1 ea 02 XX ; Start 09/20/17 at 02:00 Diagnostic Test (Pha) (Accu-Chek) 1 ea 02 XX ; Start 09/20/17 at 02:00 Miscellaneous Information 1 ea NOTE XX ; Start 09/19/17 at 10:30 Glucose (Glutose) 15 gm Q15M PRN PO DECREASED GLUCOSE; Start 09/19/17 at 10:30 Glucose (Glutose) 22.5 gm Q15M PRN PO DECREASED GLUCOSE; Start 09/19/17 at 10: 30 Dextrose (D50w Syringe) 25 ml Q15M PRN IV DECREASED GLUCOSE; Start 09/19/17 at 10:30 Dextrose (D50w Syringe) 50 ml Q15M PRN IV DECREASED GLUCOSE; Start 09/19/17 at 10:30 Glucagon (Glucagen) 1 mg Q15M PRN IM DECREASED GLUCOSE; Start 09/19/17 at 10: 30 Glucose (Glutose) 15 gm Q15M PRN BUCCAL DECREASED GLUCOSE; Start 09/19/17 at 10:30 PINEDA ERAZO NP Sep 20, 2017 13:44
[2017-09-20] MEDS: ATORVASTATIN 80 MG TAB PO SCH (20:25)
[2017-09-20] MEDS: ENOXAPARIN 40 MG/0.4 ML SYG SC SCH (20:30)
[2017-09-21] VITALS (10 sets, daily range): BP systolic 133–149; BP diastolic 70–85; PULSE 71–90; RESP 18–20
[2017-09-21] MEDS: ACCU-CHEK XX SCH (02:00)
[2017-09-21] MEDS: INSULIN ASPART [NOVOLOG] 3 ML PEN SC SCH ×4 (08:37→20:41)
--- NOTE | 2017-09-21 09:10 | PN ---
Date/Time of Note Date/Time of Note DATE: 09/21/17 TIME: 09:08 Assessment/Plan VTE Prophylaxis VTE Prophylaxis Intervention: LMWH Lines/Catheters IV C[facility]ter Type (from [facility] Saline Lock Urinary Cath still in place: No Assessment/Plan Chief Complaint/Hosp Course 57-year-old female with no significant past medical history who was transferred from OSH for dizziness/lightheadedness/right upper and lower extremity weakness 1 day duration. 1.Left basal ganglia infarct. No evidence of intracranial hemorrhage. -Neuro eval appreciated. Continue with PT/OT/ST eval and treatment. -Aspirin/statin/diabetic management. Goal blood pressure ~140/90 2. DMII. A1c 7.2. -Accu-Cheks/insulin in-house. -Metformin upon discharge. Carb controlled diet, diabetic education. 3. Dyslipidemia. -Continue statin. Prophylaxis: Lovenox. DC planning to inpatient rehab unit -Pending insurance authorization. Patient was seen in collaboration with . Problems: Subjective 24 Hr Interval Summary Free Text/Dictation No acute distress.Discharge planning to further inpatient rehab unit. Exam/Review of Systems Vital Signs Vitals Vital Signs Date Time Temp Pulse Resp B/P Pulse Ox O2 Delivery O2 Flow Rate FiO2 09/21/17 08:23 83 09/21/17 07:35 97.9 18 149/85 98 Intake and Output 09/20/17 09/20/17 09/21/17 15:00 23:00 07:00 Intake Total 1000 ml 500 ml Balance 1000 ml 500 ml Exam General: Well developed,adequately built female, not in any acute distress . HEENT: Normocephalic, Atraumatic, No laceration or hematoma; Eyes: PEERL, Conjunctiva clear, Anicteric sclera Neck: Supple without any lymphadenopathy, nontender, no JVD, no carotid bruits, trachea midline, no thyromegaly Cardiac: S1, S2 auscultated, regular rhythm and rate, no mumurs or gallop Pulmonary: Normal respiratory effort. Chest clear to auscultation bilaterally, no adventitious breath sounds GI: Abdomen normal to inspection. Soft, non tender, non- distended, no masses, no rebound tenderness or guarding. Bowel sounds active on all four quadrants Genitourinary: Deferred Extremities: Right lower extremity 4 out of 5. 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 No cyanosis, clubbing, or edema. Pulses [2+] bilaterally. Full ROM on all four extremities. Neurologic: Alert to person, place, time, and situation. Affect appropriate, intact sensation. Skin: Clean,dry, and intact. No ecchymosis, no rashes, or lesions Results Result Diagram: 09/18/17 0536 09/19/17 0710 Results 24 hrs Laboratory Tests Test 09/20/17 12:09 09/20/17 17:41 09/20/17 20:28 09/21/17 08:34 Bedside Glucose 144 122 141 167 Medications Medications Current Medications Ondansetron HCl (Zofran Inj) 4 mg Q6H PRN IV NAUSEA AND/OR VOMITING Last administered on 09/20/17 12:15; Admin Dose 4 MG; Start 09/17/17 at 19:30 Acetaminophen (Tylenol Tab) 650 mg Q6H PRN PO PAIN LEVEL 1-3 OR FEVER Last administered on 09/20/17 12:15; Admin Dose 650 MG; Start 09/17/17 at 19:30 Acetaminophen/ Hydrocodone Bitart ([place] (5/325)) 1 tab Q6H PRN PO MODERATE PAIN LEVEL 4-6; Start 09/17/17 at 19:30 Morphine Sulfate (morphine) 2 mg Q4H PRN IV SEVERE PAIN LEVEL 7-10; Start at 19:30 Zolpidem Tartrate (Ambien) 5 mg QHS PRN PO SLEEP; Start 09/17/17 at 19:30 Enoxaparin Sodium (Lovenox) 40 mg DAILY@21 SC Last administered on 09/20/17 20 :30; Admin Dose 40 MG; Start 09/17/17 at 21:00 Atorvastatin Calcium (Lipitor) 80 mg HS PO Last administered on 09/20/17 20:25 ; Admin Dose 80 MG; Start 09/17/17 at 21:00 Aspirin (Halfprin) 81 mg DAILY PO Last administered on 09/20/17 09:24; Admin Dose 81 MG; Start 09/19/17 at 09:00 Diagnostic Test (Pha) (Accu-Chek) 1 ea 02 XX ; Start 09/20/17 at 02:00 Miscellaneous Information 1 ea NOTE XX ; Start 09/19/17 at 10:30 Glucose (Glutose) 15 gm Q15M PRN PO DECREASED GLUCOSE; Start 09/19/17 at 10:30 Glucose (Glutose) 22.5 gm Q15M PRN PO DECREASED GLUCOSE; Start 09/19/17 at 10: 30 Dextrose (D50w Syringe) 25 ml Q15M PRN IV DECREASED GLUCOSE; Start 09/19/17 at 10:30 Dextrose (D50w Syringe) 50 ml Q15M PRN IV DECREASED GLUCOSE; Start 09/19/17 at 10:30 Glucagon (Glucagen) 1 mg Q15M PRN IM DECREASED GLUCOSE; Start 09/19/17 at 10: 30 Glucose (Glutose) 15 gm Q15M PRN BUCCAL DECREASED GLUCOSE; Start 09/19/17 at 10:30 PINEDA ERAZO NP Sep 21, 2017 09:10
[2017-09-21] MEDS: ASPIRIN (EC) 81 MG TAB PO SCH (09:16)
[2017-09-21] MEDS ORDERED: BISACODYL (EC) 5 MG TAB PO ONE (11:00)
[2017-09-21] MEDS ORDERED: BISACODYL (EC) 5 MG TAB PO PRN (11:00)
[2017-09-21] MEDS ORDERED: DOCUSATE SODIUM 100 MG CAP PO ONE (11:00)
[2017-09-21] MEDS: DOCUSATE SODIUM 100 MG CAP PO SCH (12:57)
[2017-09-21] MEDS: ATORVASTATIN 80 MG TAB PO SCH (20:38)
[2017-09-21] MEDS: ENOXAPARIN 40 MG/0.4 ML SYG SC SCH (20:43)
[2017-09-22] VITALS (10 sets, daily range): BP systolic 130–147; BP diastolic 7–80; PULSE 85–90; RESP 18–20
[2017-09-22] MEDS: ACCU-CHEK XX SCH (02:00)
[2017-09-22] MEDS: INSULIN ASPART [NOVOLOG] 3 ML PEN SC SCH ×3 (07:55→17:55)
[2017-09-22] MEDS: DOCUSATE SODIUM 100 MG CAP PO SCH (09:00)
[2017-09-22] MEDS: ASPIRIN (EC) 81 MG TAB PO SCH (09:27)
--- NOTE | 2017-09-22 09:36 | PN ---
Date/Time of Note Date/Time of Note DATE: 09/22/17 TIME: 09:34 Assessment/Plan VTE Prophylaxis VTE Prophylaxis Intervention: ambulation Lines/Catheters [facility] Saline Lock Urinary Cath still in place: No Assessment/Plan Chief Complaint/Hosp Course 57-year-old female with no significant past medical history who was transferred from OSH for dizziness/lightheadedness/right upper and lower extremity weakness 1 day duration. 1.Left basal ganglia infarct. No evidence of intracranial hemorrhage. -Neuro eval appreciated. Continue with PT/OT/ST eval and treatment. -Aspirin/statin/diabetic management. Goal blood pressure ~140/90 2. DMII. A1c 7.2. -Accu-Cheks/insulin in-house. -Metformin upon discharge. Carb controlled diet, diabetic education. 3. Dyslipidemia. -Continue statin. Prophylaxis: Lovenox. Disposition: Unfortunately, due to insurance limitation, patient was not accepted to acute rehabilitation unit. As per PT recommendation, patient can be discharged home with home health physical therapy, for which patient is not receptive at this time and opted for inpatient rehabilitation at a alf facility. Case management to arrange discharge to alf facility for short-term physical therapy prior to discharge home. Patient was seen in collaboration with . Problems: Subjective 24 Hr Interval Summary Free Text/Dictation Patient sitting up in chair. Patient was evaluated by PT/OT with recommendation of home health physical therapy versus inpatient physical therapy. Exam/Review of Systems Vital Signs Vitals Vital Signs Date Time Temp Pulse Resp B/P Pulse Ox O2 Delivery O2 Flow Rate FiO2 09/22/17 08:22 98.0 88 18 130/80 98 Intake and Output 09/21/17 09/21/17 09/22/17 15:00 23:00 07:00 Intake Total 800 ml 400 ml Balance 800 ml 400 ml Exam General: Well developed,adequately built female, not in any acute distress . HEENT: Normocephalic, Atraumatic, No laceration or hematoma; Eyes: PEERL, Conjunctiva clear, Anicteric sclera Neck: Supple without any lymphadenopathy, nontender, no JVD, no carotid bruits, trachea midline, no thyromegaly Cardiac: S1, S2 auscultated, regular rhythm and rate, no mumurs or gallop Pulmonary: Normal respiratory effort. Chest clear to auscultation bilaterally, no adventitious breath sounds GI: Abdomen normal to inspection. Soft, non tender, non- distended, no masses, no rebound tenderness or guarding. Bowel sounds active on all four quadrants Genitourinary: Deferred Extremities: Right lower extremity 4 out of 5. 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 No cyanosis, clubbing, or edema. Pulses [2+] bilaterally. Full ROM on all four extremities. Neurologic: Alert to person, place, time, and situation. Affect appropriate, intact sensation. Skin: Clean,dry, and intact. No ecchymosis, no rashes, or lesions Results Result Diagram: 09/18/17 0536 09/19/17 0710 Results 24 hrs Laboratory Tests Test 09/21/17 12:53 09/21/17 17:58 09/21/17 20:40 09/22/17 08:20 Bedside Glucose 107 132 135 136 Medications Medications Current Medications Ondansetron HCl (Zofran Inj) 4 mg Q6H PRN IV NAUSEA AND/OR VOMITING Last administered on 09/20/17 12:15; Admin Dose 4 MG; Start 09/17/17 at 19:30 Acetaminophen (Tylenol Tab) 650 mg Q6H PRN PO PAIN LEVEL 1-3 OR FEVER Last administered on 09/20/17 12:15; Admin Dose 650 MG; Start 09/17/17 at 19:30 Acetaminophen/ Hydrocodone Bitart ([place] (5/325)) 1 tab Q6H PRN PO MODERATE PAIN LEVEL 4-6; Start 09/17/17 at 19:30 Morphine Sulfate (morphine) 2 mg Q4H PRN IV SEVERE PAIN LEVEL 7-10; Start at 19:30 Zolpidem Tartrate (Ambien) 5 mg QHS PRN PO SLEEP; Start 09/17/17 at 19:30 Enoxaparin Sodium (Lovenox) 40 mg DAILY@21 SC Last administered on 09/21/17 20 :43; Admin Dose 40 MG; Start 09/17/17 at 21:00 Atorvastatin Calcium (Lipitor) 80 mg HS PO Last administered on 09/21/17 20:38 ; Admin Dose 80 MG; Start 09/17/17 at 21:00 Aspirin (Halfprin) 81 mg DAILY PO Last administered on 09/22/17 09:27; Admin Dose 81 MG; Start 09/19/17 at 09:00 Diagnostic Test (Pha) (Accu-Chek) 1 ea 02 XX ; Start 09/20/17 at 02:00 Miscellaneous Information 1 ea NOTE XX ; Start 09/19/17 at 10:30 Glucose (Glutose) 15 gm Q15M PRN PO DECREASED GLUCOSE; Start 09/19/17 at 10:30 Glucose (Glutose) 22.5 gm Q15M PRN PO DECREASED GLUCOSE; Start 09/19/17 at 10: 30 Dextrose (D50w Syringe) 25 ml Q15M PRN IV DECREASED GLUCOSE; Start 09/19/17 at 10:30 Dextrose (D50w Syringe) 50 ml Q15M PRN IV DECREASED GLUCOSE; Start 09/19/17 at 10:30 Glucagon (Glucagen) 1 mg Q15M PRN IM DECREASED GLUCOSE; Start 09/19/17 at 10: 30 Glucose (Glutose) 15 gm Q15M PRN BUCCAL DECREASED GLUCOSE; Start 09/19/17 at 10:30 Docusate Sodium (Colace) 100 mg BID PO Last administered on 09/21/17 12:57; Admin Dose 100 MG; Start 09/21/17 at 21:00 Bisacodyl (Dulcolax) 10 mg DAILY PRN PO CONSTIPATION; Start 09/21/17 at 11:00 PINEDA ERAZO NP Sep 22, 2017 09:36
--- NOTE | 2017-09-22 09:36 | PN ---
Date/Time of Note Date/Time of Note DATE: 09/22/17 TIME: 09:34 Assessment/Plan VTE Prophylaxis VTE Prophylaxis Intervention: ambulation Lines/Catheters IV Catheter Type (from [facility]): Saline Lock Urinary Cath still in place: No Assessment/Plan Chief Complaint/Hosp Course 57-year-old female with no significant past medical history who was transferred from OSH for dizziness/lightheadedness/right upper and lower extremity weakness 1 day duration. 1.Left basal ganglia infarct. No evidence of intracranial hemorrhage. -Neuro eval appreciated. Continue with PT/OT/ST eval and treatment. -Aspirin/statin/diabetic management. Goal blood pressure ~140/90 2. DMII. A1c 7.2. -Accu-Cheks/insulin in-house. -Metformin upon discharge. Carb controlled diet, diabetic education. 3. Dyslipidemia. -Continue statin. Prophylaxis: Lovenox. Disposition: Unfortunately, due to insurance limitation, patient was not accepted to acute rehabilitation unit. As per PT recommendation, patient can be discharged home with home health physical therapy, for which patient is not receptive at this time and opted for inpatient rehabilitation at a long term facility. Case management to arrange discharge to long term facility for short-term physical therapy prior to discharge home. Patient was seen in collaboration with . Problems: Subjective 24 Hr Interval Summary Free Text/Dictation Patient sitting up in chair. Patient was evaluated by PT/OT with recommendation of home health physical therapy versus inpatient physical therapy. Exam/Review of Systems Vital Signs Vitals Vital Signs Date Time Temp Pulse Resp B/P Pulse Ox O2 Delivery O2 Flow Rate FiO2 09/22/17 08:22 98.0 88 18 130/80 98 Intake and Output 09/21/17 09/21/17 09/22/17 15:00 23:00 07:00 Intake Total 800 ml 400 ml Balance 800 ml 400 ml Exam General: Well developed,adequately built female, not in any acute distress . HEENT: Normocephalic, Atraumatic, No laceration or hematoma; Eyes: PEERL, Conjunctiva clear, Anicteric sclera Neck: Supple without any lymphadenopathy, nontender, no JVD, no carotid bruits, trachea midline, no thyromegaly Cardiac: S1, S2 auscultated, regular rhythm and rate, no mumurs or gallop Pulmonary: Normal respiratory effort. Chest clear to auscultation bilaterally, no adventitious breath sounds GI: Abdomen normal to inspection. Soft, non tender, non- distended, no masses, no rebound tenderness or guarding. Bowel sounds active on all four quadrants Genitourinary: Deferred Extremities: Right lower extremity 4 out of 5. 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 No cyanosis, clubbing, or edema. Pulses [2+] bilaterally. Full ROM on all four extremities. Neurologic: Alert to person, place, time, and situation. Affect appropriate, intact sensation. Skin: Clean,dry, and intact. No ecchymosis, no rashes, or lesions Results Result Diagram: 09/18/17 0536 09/19/17 0710 Results 24 hrs Laboratory Tests Test 09/21/17 12:53 09/21/17 17:58 09/21/17 20:40 09/22/17 08:20 Bedside Glucose 107 132 135 136 Medications Medications Current Medications Ondansetron HCl (Zofran Inj) 4 mg Q6H PRN IV NAUSEA AND/OR VOMITING Last administered on 09/20/17 12:15; Admin Dose 4 MG; Start 09/17/17 at 19:30 Acetaminophen (Tylenol Tab) 650 mg Q6H PRN PO PAIN LEVEL 1-3 OR FEVER Last administered on 09/20/17 12:15; Admin Dose 650 MG; Start 09/17/17 at 19:30 Acetaminophen/ Hydrocodone Bitart ([place] (5/325)) 1 tab Q6H PRN PO MODERATE PAIN LEVEL 4-6; Start 09/17/17 at 19:30 Morphine Sulfate (morphine) 2 mg Q4H PRN IV SEVERE PAIN LEVEL 7-10; Start at 19:30 Zolpidem Tartrate (Ambien) 5 mg QHS PRN PO SLEEP; Start 09/17/17 at 19:30 Enoxaparin Sodium (Lovenox) 40 mg DAILY@21 SC Last administered on 09/21/17 20 :43; Admin Dose 40 MG; Start 09/17/17 at 21:00 Atorvastatin Calcium (Lipitor) 80 mg HS PO Last administered on 09/21/17 20:38 ; Admin Dose 80 MG; Start 09/17/17 at 21:00 Aspirin (Halfprin) 81 mg DAILY PO Last administered on 09/22/17 09:27; Admin Dose 81 MG; Start 09/19/17 at 09:00 Diagnostic Test (Pha) (Accu-Chek) 1 ea 02 XX ; Start 09/20/17 at 02:00 Miscellaneous Information 1 ea NOTE XX ; Start 09/19/17 at 10:30 Glucose (Glutose) 15 gm Q15M PRN PO DECREASED GLUCOSE; Start 09/19/17 at 10:30 Glucose (Glutose) 22.5 gm Q15M PRN PO DECREASED GLUCOSE; Start 09/19/17 at 10: 30 Dextrose (D50w Syringe) 25 ml Q15M PRN IV DECREASED GLUCOSE; Start 09/19/17 at 10:30 Dextrose (D50w Syringe) 50 ml Q15M PRN IV DECREASED GLUCOSE; Start 09/19/17 at 10:30 Glucagon (Glucagen) 1 mg Q15M PRN IM DECREASED GLUCOSE; Start 09/19/17 at 10: 30 Glucose (Glutose) 15 gm Q15M PRN BUCCAL DECREASED GLUCOSE; Start 09/19/17 at 10:30 Docusate Sodium (Colace) 100 mg BID PO Last administered on 09/21/17 12:57; Admin Dose 100 MG; Start 09/21/17 at 21:00 Bisacodyl (Dulcolax) 10 mg DAILY PRN PO CONSTIPATION; Start 09/21/17 at 11:00 PINEDA ERAZO NP Sep 22, 2017 09:36
--- NOTE | 2017-09-22 09:36 | PN ---
Date/Time of Note Date/Time of Note DATE: 09/22/17 TIME: 09:34 Assessment/Plan VTE Prophylaxis VTE Prophylaxis Intervention: ambulation Lines/Catheters IV Catheter Type (from [facility]): Saline Lock Urinary Cath still in place: No Assessment/Plan Chief Complaint/Hosp Course 57-year-old female with no significant past medical history who was transferred from OSH for dizziness/lightheadedness/right upper and lower extremity weakness 1 day duration. 1.Left basal ganglia infarct. No evidence of intracranial hemorrhage. -Neuro eval appreciated. Continue with PT/OT/ST eval and treatment. -Aspirin/statin/diabetic management. Goal blood pressure ~140/90 2. DMII. A1c 7.2. -Accu-Cheks/insulin in-house. -Metformin upon discharge. Carb controlled diet, diabetic education. 3. Dyslipidemia. -Continue statin. Prophylaxis: Lovenox. Disposition: Unfortunately, due to insurance limitation, patient was not accepted to acute rehabilitation unit. As per PT recommendation, patient can be discharged home with home health physical therapy, for which patient is not receptive at this time and opted for inpatient rehabilitation at a senior living facility. Case management to arrange discharge to senior living facility for short-term physical therapy prior to discharge home. Patient was seen in collaboration with . Problems: Subjective 24 Hr Interval Summary Free Text/Dictation Patient sitting up in chair. Patient was evaluated by PT/OT with recommendation of home health physical therapy versus inpatient physical therapy. Exam/Review of Systems Vital Signs Vitals Vital Signs Date Time Temp Pulse Resp B/P Pulse Ox O2 Delivery O2 Flow Rate FiO2 09/22/17 08:22 98.0 88 18 130/80 98 Intake and Output 09/21/17 09/21/17 09/22/17 15:00 23:00 07:00 Intake Total 800 ml 400 ml Balance 800 ml 400 ml Exam General: Well developed,adequately built female, not in any acute distress . HEENT: Normocephalic, Atraumatic, No laceration or hematoma; Eyes: PEERL, Conjunctiva clear, Anicteric sclera Neck: Supple without any lymphadenopathy, nontender, no JVD, no carotid bruits, trachea midline, no thyromegaly Cardiac: S1, S2 auscultated, regular rhythm and rate, no mumurs or gallop Pulmonary: Normal respiratory effort. Chest clear to auscultation bilaterally, no adventitious breath sounds GI: Abdomen normal to inspection. Soft, non tender, non- distended, no masses, no rebound tenderness or guarding. Bowel sounds active on all four quadrants Genitourinary: Deferred Extremities: Right lower extremity 4 out of 5. 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 No cyanosis, clubbing, or edema. Pulses [2+] bilaterally. Full ROM on all four extremities. Neurologic: Alert to person, place, time, and situation. Affect appropriate, intact sensation. Skin: Clean,dry, and intact. No ecchymosis, no rashes, or lesions Results Result Diagram: 09/18/17 0536 09/19/17 0710 Results 24 hrs Laboratory Tests Test 09/21/17 12:53 09/21/17 17:58 09/21/17 20:40 09/22/17 08:20 Bedside Glucose 107 132 135 136 Medications Medications Current Medications Ondansetron HCl (Zofran Inj) 4 mg Q6H PRN IV NAUSEA AND/OR VOMITING Last administered on 09/20/17 12:15; Admin Dose 4 MG; Start 09/17/17 at 19:30 Acetaminophen (Tylenol Tab) 650 mg Q6H PRN PO PAIN LEVEL 1-3 OR FEVER Last administered on 09/20/17 12:15; Admin Dose 650 MG; Start 09/17/17 at 19:30 Acetaminophen/ Hydrocodone Bitart ([place] (5/325)) 1 tab Q6H PRN PO MODERATE PAIN LEVEL 4-6; Start 09/17/17 at 19:30 Morphine Sulfate (morphine) 2 mg Q4H PRN IV SEVERE PAIN LEVEL 7-10; Start at 19:30 Zolpidem Tartrate (Ambien) 5 mg QHS PRN PO SLEEP; Start 09/17/17 at 19:30 Enoxaparin Sodium (Lovenox) 40 mg DAILY@21 SC Last administered on 09/21/17 20 :43; Admin Dose 40 MG; Start 09/17/17 at 21:00 Atorvastatin Calcium (Lipitor) 80 mg HS PO Last administered on 09/21/17 20:38 ; Admin Dose 80 MG; Start 09/17/17 at 21:00 Aspirin (Halfprin) 81 mg DAILY PO Last administered on 09/22/17 09:27; Admin Dose 81 MG; Start 09/19/17 at 09:00 Diagnostic Test (Pha) (Accu-Chek) 1 ea 02 XX ; Start 09/20/17 at 02:00 Miscellaneous Information 1 ea NOTE XX ; Start 09/19/17 at 10:30 Glucose (Glutose) 15 gm Q15M PRN PO DECREASED GLUCOSE; Start 09/19/17 at 10:30 Glucose (Glutose) 22.5 gm Q15M PRN PO DECREASED GLUCOSE; Start 09/19/17 at 10: 30 Dextrose (D50w Syringe) 25 ml Q15M PRN IV DECREASED GLUCOSE; Start 09/19/17 at 10:30 Dextrose (D50w Syringe) 50 ml Q15M PRN IV DECREASED GLUCOSE; Start 09/19/17 at 10:30 Glucagon (Glucagen) 1 mg Q15M PRN IM DECREASED GLUCOSE; Start 09/19/17 at 10: 30 Glucose (Glutose) 15 gm Q15M PRN BUCCAL DECREASED GLUCOSE; Start 09/19/17 at 10:30 Docusate Sodium (Colace) 100 mg BID PO Last administered on 09/21/17 12:57; Admin Dose 100 MG; Start 09/21/17 at 21:00 Bisacodyl (Dulcolax) 10 mg DAILY PRN PO CONSTIPATION; Start 09/21/17 at 11:00 PINEDA ERAZO NP Sep 22, 2017 09:36
--- NOTE | 2017-09-22 14:39 | DS ---
Date/Time of Note Date/Time of Note DATE: 09/22/17 TIME: 14:37 Discharge Summary Admission/Discharge Info Admit Date/Time Sep 17, 2017 at 17:27 Discharge Date/Time Discharge Diagnosis 1. Subacute left basal ganglia infarct. 2. DMII. A1c 7.2. 3. Dyslipidemia. Patient Condition: Stable Consults . Procedures 09/19/2017. MRI brain with and without contrast. IMPRESSION: 1. Acute infarction in the left basal ganglia. 2. No acute hemorrhage. 09/19 brain MRA neck with and without contrast. IMPRESSION: No flow-limiting stenosis by NASCET criteria. Hx of Present Illness This is a 57-year-old female with no significant past medical history who initially presented to an outside hospital complaining of dizziness/ lightheadedness and right upper and lower extremity weakness 1 day. Denied facial droop, slurred speech or visual disturbance. Her son who is at the bedside however stated that yesterday morning he noticed slight slurred speech when he spoke over the phone. Patient was transferred to [facility] because of insurance reasons. Head CT at the outside hospital showed no acute findings. Once patient was admitted here, per nursing she had some facial asymmetry and complaints of worsening right-sided weakness. Head CT obtained at that time which showed a small subacute left basal ganglia infarct. Hospital Course This is a 57-year-old female with no significant past medical history, who initially presented to outside hospital for evaluation of sudden onset of dizziness, lightheadedness, mild slurry speech and right lower extremity weakness 1 day duration. Patient was transferred to [facility] for insurance reason. Initial head CT showed small subacute left basal ganglia infarct. Patient was admitted. A complete stroke workup was performed at [facility] with the findings of acute left basal ganglia stroke. Patient also had adult onset diabetes with A1c 7.2. Patient was evaluated by neurologist. She was continued on medical management with aspirin 81 mg daily, Lipitor 80 mg at bedtime. Patient's blood pressure remained at desired range without any blood pressure medications. Patient had diabetic education. Echocardiogram with normal findings. Patient was evaluated by physical therapy, occupational therapy and speech therapy. She did not have any further speech difficulties. Patient is able to tolerate normal diet. Patient was able to tolerate ambulation with assist. However, she continued to have some residual right- sided weakness requiring further rehabilitation. Patient was not receptive for home health physical therapy. Therefore, recommendation was to send patient for inpatient short-term physical therapy at a detention facility. Patient is receptive to it. Disposition: Discharged to detention facility for short-term physical therapy. Patient was instructed to follow-up with primary care physician in 1 week. Patient and family verbalized discharge instructions. Approximately 60 minutes was spent in coordinating the discharge on this patient. Patient is seen in collaboration with . Home Meds Active Scripts Metformin* (Glucophage*) 500 Mg Tab, 500 MG PO WITH BREAKFAST DINNE, #30 TAB Prov:PINEDA ERAZO NP 09/20/17 Insulin Aspart* (Novolog Insulin Pen*) 100 Unit/Ml Soln, 0 UNIT SC WITH MEALS BEDTIME, #1 Prov:PINEDA ERAZO NP 09/20/17 Zolpidem Tartrate (Ambien Anival) 5 Mg Tablet, 5 MG PO QHS Y for SLEEP, #30 TAB Prov:PINEDA ERAZO NP 09/20/17 Hydrocodone Bit-Acetaminophen (Hydrocodone Bit-APAP) 5-325MG Tablet, 1 TAB PO Q6H Y for MODERATE PAIN LEVEL 4-6, #30 TAB Prov:PINEDA ERAZO NP 09/20/17 Aspirin* (Aspirin* EC) 81 Mg Tablet., 81 MG PO DAILY, #30 TAB Prov:PINEDA ERAZO NP 09/20/17 Atorvastatin* (Atorvastatin*) 80 Mg Tablet, 80 MG PO HS, #60 TAB Prov:PINEDA ERAZO NP 09/20/17 Follow-up Plan PT/OT/Eval &tx Follow-up with PCP after discharge from rehab. Primary Care Provider Care Physician No Primary Pending Labs Laboratory Tests Test 09/21/17 17:58 09/21/17 20:40 09/22/17 08:20 09/22/17 12:47 Bedside Glucose 132mg/dL (70-220) 135mg/dL (70-220) 136mg/dL (70-220) 112mg/dL (70-220) PINEDA ERAZO NP Sep 22, 2017 14:39
--- NOTE | 2017-09-22 14:39 | DS ---
Date/Time of Note Date/Time of Note DATE: 09/22/17 TIME: 14:37 Discharge Summary Admission/Discharge Info Admit Date/Time Sep 17, 2017 at 17:27 Discharge Date/Time Discharge Diagnosis 1. Subacute left basal ganglia infarct. 2. DMII. A1c 7.2. 3. Dyslipidemia. Patient Condition: Stable Consults . Procedures 09/19/2017. MRI brain with and without contrast. IMPRESSION: 1. Acute infarction in the left basal ganglia. 2. No acute hemorrhage. 09/19 brain MRA neck with and without contrast. IMPRESSION: No flow-limiting stenosis by NASCET criteria. Hx of Present Illness This is a 57-year-old female with no significant past medical history who initially presented to an outside hospital complaining of dizziness/ lightheadedness and right upper and lower extremity weakness 1 day. Denied facial droop, slurred speech or visual disturbance. Her son who is at the bedside however stated that yesterday morning he noticed slight slurred speech when he spoke over the phone. Patient was transferred to [facility] because of insurance reasons. Head CT at the outside hospital showed no acute findings. Once patient was admitted here, per nursing she had some facial asymmetry and complaints of worsening right-sided weakness. Head CT obtained at that time which showed a small subacute left basal ganglia infarct. Hospital Course This is a 57-year-old female with no significant past medical history, who initially presented to outside hospital for evaluation of sudden onset of dizziness, lightheadedness, mild slurry speech and right lower extremity weakness 1 day duration. Patient was transferred to [facility] for insurance reason. Initial head CT showed small subacute left basal ganglia infarct. Patient was admitted. A complete stroke workup was performed at [facility] with the findings of acute left basal ganglia stroke. Patient also had adult onset diabetes with A1c 7.2. Patient was evaluated by neurologist. She was continued on medical management with aspirin 81 mg daily, Lipitor 80 mg at bedtime. Patient's blood pressure remained at desired range without any blood pressure medications. Patient had diabetic education. Echocardiogram with normal findings. Patient was evaluated by physical therapy, occupational therapy and speech therapy. She did not have any further speech difficulties. Patient is able to tolerate normal diet. Patient was able to tolerate ambulation with assist. However, she continued to have some residual right- sided weakness requiring further rehabilitation. Patient was not receptive for home health physical therapy. Therefore, recommendation was to send patient for inpatient short-term physical therapy at a correction facility. Patient is receptive to it. Disposition: Discharged to correction facility for short-term physical therapy. Patient was instructed to follow-up with primary care physician in 1 week. Patient and family verbalized discharge instructions. Approximately 60 minutes was spent in coordinating the discharge on this patient. Patient is seen in collaboration with . Home Meds Active Scripts Metformin* (Glucophage*) 500 Mg Tab, 500 MG PO WITH BREAKFAST DINNE, #30 TAB Prov:PINEDA ERAZO NP 09/20/17 Insulin Aspart* (Novolog Insulin Pen*) 100 Unit/Ml Soln, 0 UNIT SC WITH MEALS BEDTIME, #1 Prov:PINEDA ERAZO NP 09/20/17 Zolpidem Tartrate (Ambien Anival) 5 Mg Tablet, 5 MG PO QHS Y for SLEEP, #30 TAB Prov:PINEDA ERAZO NP 09/20/17 Hydrocodone Bit-Acetaminophen (Hydrocodone Bit-APAP) 5-325MG Tablet, 1 TAB PO Q6H Y for MODERATE PAIN LEVEL 4-6, #30 TAB Prov:PINEDA ERAZO NP 09/20/17 Aspirin* (Aspirin* EC) 81 Mg Tablet., 81 MG PO DAILY, #30 TAB Prov:PINEDA ERAZO NP 09/20/17 Atorvastatin* (Atorvastatin*) 80 Mg Tablet, 80 MG PO HS, #60 TAB Prov:PINEDA ERAZO NP 09/20/17 Follow-up Plan PT/OT/Eval &tx Follow-up with PCP after discharge from rehab. Primary Care Provider Care Physician No Primary Pending Labs Laboratory Tests Test 09/21/17 17:58 09/21/17 20:40 09/22/17 08:20 09/22/17 12:47 Bedside Glucose 132mg/dL (70-220) 135mg/dL (70-220) 136mg/dL (70-220) 112mg/dL (70-220) PINEDA ERAZO NP Sep 22, 2017 14:39
== END 2017-09-22 19:06 | DRG 65 ==
LOC: TEL 17:27
PROVIDERS: ADMIT Internal Medicine; ATTEND Internal Medicine
DX: I63.9 Cerebral infarction, unspecified (principal); G81.91 Hemiplegia, unspecified affecting right dominant side; E11.9 Type 2 diabetes mellitus without complications; F17.200 Nicotine dependence, unspecified, uncomplicated; E78.5 Hyperlipidemia, unspecified; Z79.84 Long term (current) use of oral hypoglycemic drugs
CPT/HCPCS: 70450; 70544; 70549; 70552; 80048; 80061; 82962; 83036; 83735; 84100; 84443; 85025; 92523; 92526; 92610; 93306; 93880; 97003; 97110; 97116; 97163; 97166; 97530; 97535; J0360; J1650; J1815; J2405

== ENCOUNTER 2017-10-08 20:25 | Observation (INO) | payer OTHER ==
[~2017-10-08] VITALS: Ht 157.5 cm; Wt 60.0 kg
[~2017-10-08 20:25] MED LIST: ASPI-664 PO; ATOR80TA75 PO; HYDR-3498 PO; METF500T4 PO; NOVO3I SC; ZOLP5TAB PO
[2017-10-08 20:27] VITALS: Ht 157.5 cm; Wt 60.0 kg
[2017-10-08 21:12] LABS: BASOPHIL # 0.1 10^3/ul (0.0-0.1); BASOPHILS % 0.7 % (0.0-2.0); EOSINOPHILS # 0.4 10^3/ul (0.0-0.5); EOSINOPHILS % 4.4 % (0.0-7.0); HEMOGLOBIN 14.1 g/dl (12.0-16.0); LYMPHOCYTES # 2.2 10^3/ul (0.8-2.9); LYMPHOCYTES % 22.4 % (15.0-51.0); MEAN CORPUSCULAR HEMOGLOBIN 29.7 pg (29.0-33.0); MEAN CORPUSCULAR HGB CONC 34.4 g/dl (32.0-37.0); MEAN CORPUSCULAR VOLUME 86.3 fl (82.0-101.0); MEAN PLATELET VOLUME 9.9 fl (7.4-10.4); MONOCYTE # 0.8 10^3/ul (0.3-0.9); MONOCYTES % 7.7 % (0.0-11.0); NEUTROPHIL # 6.4 10^3/ul (1.6-7.5); NEUTROPHILS % 64.5 % (39.0-77.0); PLATELET COUNT 327 10^3/UL (140-415); RED BLOOD COUNT 4.75 10^6/ul (4.20-5.40); RED CELL DISTRIBUTION WIDTH 11.2 % (11.5-14.5); WHITE BLOOD COUNT 9.9 10^3/ul (4.8-10.8)
--- NOTE | 2017-10-08 21:14 | RADRPT ---
PROCEDURE: XR Chest. CLINICAL INDICATION: Chest pain. TECHNIQUE: Single frontal view. COMPARISON: None. FINDINGS: The lungs are clear. The heart size is normal. There is no pleural effusion. There is no pneumothorax. IMPRESSION: 1. Normal chest radiograph. RPTAT: QQ .Aayush John MD, Date Time Electronically viewed and signed by .Aayush John MD, on 10/08/2017 21:14 .R/
--- NOTE | 2017-10-08 21:22 | RADRPT ---
PROCEDURE: CT Brain without contrast. CLINICAL INDICATION: Headache. TECHNIQUE: A CT of the brain without contrast was performed utilizing axial sections from the skul l base through the vertex. The patient was scanned without intravenous contrast enhancement. Sagitta l and coronal reformatted images were obtained using the data from the axial images. Total exam DLP is 630.20 mGy-cm. CTDIvol is 43.77 mGy. One or more of the following dose reduction techniques we re used: Automated exposure control, adjustment of the mA and/or kV according to patient size, use o f iterative reconstruction technique. DICOM images are available. COMPARISON: MRI of the brain dated 09/18/2017. CT scan of the brain dated 09/18/2017. FINDINGS: There is normal rodrigues-white matter differentiation. As seen previously, there is a region of decrease d attenuation in the left basal ganglia consistent with a recent infarct. There is no hemorrhage at this site or elsewhere. There is no other recent infarct. There is mild enlargement of the ventricles and subarachnoid spaces consistent with atrophy. There is no intracranial hemorrhage or space-occupying lesion. There is no skull fracture or lytic lesion. IMPRESSION: 1. Unchanged appearance of recent infarct in the left basal ganglia. 2. Mild atrophy. 3. No intracranial hemorrhage. 4. Otherwise unremarkable noncontrast CT scan of the brain. RPTAT: QQ .Aayush John MD, Date Time Electronically viewed and signed by .Aayush John MD, on 10/08/2017 21:21 .R/
[2017-10-08 21:47] LABS: ANION GAP 18 (8-16); BLOOD UREA NITROGEN 12 mg/dl (7-20); CALCIUM 9.5 mg/dl (8.4-10.2); CARBON DIOXIDE 24 mmol/L (21-31); CHLORIDE 104 mmol/L (97-110); GLUCOSE 179 mg/dl (70-220); POTASSIUM 3.7 mmol/L (3.5-5.1); SODIUM 142 mmol/L (135-144)
[2017-10-08 22:00] LABS: TROPONIN-I < 0.012 ng/ml (0.00-0.12)
[2017-10-08] MEDS ORDERED: ACETAMINOPHEN 325 MG TAB PO PRN ×2 (22:00→23:00)
[2017-10-08] MEDS ORDERED: ONDANSETRON 4 MG INJ IV PRN (22:00)
--- NOTE | 2017-10-08 22:16 | ERD ---
ER Documentation Chief Complaint Chief Complaint MARY MERCER,from [place], chest throbbing pain,palpitations,VEE,dizziness HPI This is a 57-year-old female with recent diagnosis of ischemic stroke who presents with chest pain. She states over the last several days she has had throbbing pain in her chest that is pressure-like with associated palpitations and elevated blood pressure. She denies symptoms currently. She denies any fevers or chills. No headache though she does describe some heaviness when her blood pressure is elevated. She denies any fevers chills or cough, no pleuritic pain. ROS All systems reviewed and are negative except as per history of present illness. Medications Home Meds Active Scripts Metformin* (Glucophage*) 500 Mg Tab, 500 MG PO WITH BREAKFAST DINNE, #30 TAB Prov:ERAZOPINEDA V. CHURN OPERATOR 09/20/17 Insulin Aspart* (Novolog Insulin Pen*) 100 Unit/Ml Soln, 0 UNIT SC WITH MEALS BEDTIME, #1 Prov:ERAZOPINEDA V. CHURN OPERATOR 09/20/17 Zolpidem Tartrate (Ambien Anival) 5 Mg Tablet, 5 MG PO QHS Y for SLEEP, #30 TAB Prov:ERAZONARESHA V. CHURN OPERATOR 09/20/17 Hydrocodone Bit-Acetaminophen (Hydrocodone Bit-APAP) 5-325MG Tablet, 1 TAB PO Q6H Y for MODERATE PAIN LEVEL 4-6, #30 TAB Prov:ERAZONARESHA V. CHURN OPERATOR 09/20/17 Aspirin* (Aspirin* EC) 81 Mg Tablet.dr, 81 MG PO DAILY, #30 TAB Prov:ERAZONARESHA V. CHURN OPERATOR 09/20/17 Atorvastatin* (Atorvastatin*) 80 Mg Tablet, 80 MG PO HS, #60 TAB Prov:ERAZONARESHA V. CHURN OPERATOR 09/20/17 Allergies Allergies: Coded Allergies: No Known Allergy (Unverified , 09/17/17) PMhx/Soc History of Surgery: No Anesthesia Reaction: No Hx Neurological Disorder: No Hx Respiratory Disorders: No Hx Cardiac Disorders: Yes (acute left sided CVA w R sided weakness) Hx Psychiatric Problems: No Hx Miscellaneous Medical Probl: No Hx Alcohol Use: No Hx Substance Use: No Hx Tobacco Use: No Smoking Status: Never smoker FmHx Family History: No diabetes Physical Exam Vitals Vital Signs Date Time Temp Pulse Resp B/P Pulse Ox O2 Delivery O2 Flow Rate FiO2 10/08/17 20:27 98.3 85 18 159/74 98 Physical Exam General: Well developed, well nourished, no acute distress Head: Normocephalic, atraumatic. Eyes: Pupils equally reactive, EOM intact ENT: Moist mucous membranes Neck: Supple, no lymphadenopathy Respiratory: Lungs clear bilaterally, no distress Cardiovascular: RRR, no murmurs, rubs, or gallops Abdominal: Soft, non-tender, non-distended, no peritoneal signs : Deferred MSK: No edema, no unilateral swelling, 5/5 strength Neurologic: Alert and oriented, moving all extremities, normal speech, no focal weakness, no cerebellar signs Skin: No rash Psych: Normal mood Result Diagram: 10/08/17209910/08/17 2100 Results 24 hrs Laboratory Tests Test 10/08/17 21:00 White Blood Count 9.910^3/ul Red Blood Count 4.7510^6/ul Hemoglobin 14.1g/dl Hematocrit 41.0% Mean Corpuscular Volume 86.3fl Mean Corpuscular Hemoglobin 29.7pg Mean Corpuscular Hemoglobin Concent 34.4g/dl Red Cell Distribution Width 11.2% Platelet Count 93926^3/UL Mean Platelet Volume 9.9fl Neutrophils % 64.5% Lymphocytes % 22.4% Monocytes % 7.7% Eosinophils % 4.4% Basophils % 0.7% Nucleated Red Blood Cells % 0.0/100WBC Neutrophils # 6.410^3/ul Lymphocytes # 2.210^3/ul Monocytes # 0.810^3/ul Eosinophils # 0.410^3/ul Basophils # 0.110^3/ul Nucleated Red Blood Cells # 0.010^3/ul Sodium Level 142mmol/L Potassium Level 3.7mmol/L Chloride Level 104mmol/L Carbon Dioxide Level 24mmol/L Anion Gap 18 Blood Urea Nitrogen 12mg/dl Creatinine 0.50mg/dl Glucose Level 179mg/dl Calcium Level 9.5mg/dl Troponin I < 0.012ng/ml Current Medications Medications (Trade) Dose Ordered Sig/Chinmay Route PRN Reason Start Time Stop Time Status Last Admin Dose Admin Ondansetron HCl (Zofran Inj) 4 mg ER BRIDGE PRN IV NAUSEA AND/OR VOMITING 10/08/17 22:00 10/09/17 21:59 Acetaminophen (Tylenol Tab) 650 mg ER BRIDGE PRN PO MILD PAIN/FEVER 10/08/17 22:00 10/09/17 21:59 Procedures/MDM EKG, MONITORS, & DIAGNOSTIC IMAGING: EKG: I reviewed and interpreted a 12-lead EKG. Rhythm: Normal sinus rhythm Ectopy: None Intervals: No abnormalities ST segments: No elevations or depressions T waves: No contiguous inversions Repeat EKG: EKG: I reviewed and interpreted a 12-lead EKG. Rhythm: Normal sinus rhythm Ectopy: None Intervals: No abnormalities ST segments: No elevations or depressions T waves: No contiguous inversions Chest x-ray: I reviewed and interpreted a 1 view of the chest Mediastinum: No enlargement Cardiac silhouette: No cardiomegaly Airspace: Clear lung gibson bilaterally without evidence of pneumothorax Bones: No evidence of fracture CT brain: No change in old infarct. No evidence of acute intracranial process LAB INTERPRETATION: Negative troponin MEDICAL DECISION MAKING: The patient's history, physical exam and clinical presentation is concerning for possible cardiogenic etiology and acute coronary syndrome. The patient also appears to be somewhat anxious about her placement at this time. This could be playing a role in her presentation. Based on the patient's clinical exam and history and risk factors, I have a much lower clinical concern for pulmonary embolism, acute aortic dissection, pneumothorax, pneumonia, cardiac tamponade HEART Score: 4 MACE Rate: Upwards of 16.6% Shared Decision Making: We had a conversation regarding risk stratification, MACE rate, and the risks, benefits, alternatives of disposition planning options. Disposition planning: Inpatient hospitalization ER COURSE: Patient is chest pain-free upon arrival. Her EKG is nonischemic. Her CT brain shows no evidence of hemorrhage. The patient was given 162 aspirin. I believe the benefits of aspirin at this time outweigh the risks given the patient's chest pain is concerning for possible cardiac etiology. I kept the patient and/or family informed of laboratory and diagnostic imaging results throughout the emergency room course. DISPOSITION PLAN: [] CONSULTATION: Telemetry admission for management of chest pain to rule out acute coronary syndrome, serial enzymes, risk stratification and consideration of provocative testing CONSULTATION: Accepting care team and consultations: I discussed the current laboratory data, diagnostic imaging and emergency care provided. Admitting team: Dr. Beckman Admitting team indication: Insurance directed Departure Diagnosis: Primary Impression: Palpitations Additional Impression: Chest pain Chest pain type: unspecified Qualified Code: R07.9 - Chest pain, unspecified type Condition: Stable ARTEM PAZ MD Oct 08, 2017 22:16
[2017-10-08] MEDS ORDERED: ASPIRIN 81 MG TAB PO ONE (22:30)
[2017-10-08] MEDS ORDERED: BISACODYL (EC) 5 MG TAB PO PRN (23:00)
[2017-10-08] MEDS ORDERED: DOCUSATE SODIUM 100 MG CAP PO PRN (23:00)
[2017-10-08] MEDS ORDERED: morphine 2 MG INJ IV PRN (23:00)
[2017-10-08] MEDS ORDERED: NACL 0.9% 3 ML SYG IV SCH (23:00)
[2017-10-08] MEDS ORDERED: NITROGLYCERIN (SL) 0.4 MG TAB SL PRN (23:00)
[2017-10-08] MEDS ORDERED: ONDANSETRON 4 MG TAB PO PRN (23:00)
[2017-10-09] VITALS (13 sets, daily range): BP systolic 134–149; BP diastolic 69–91; PULSE 68–95; RESP 18–20; TEMP 99.4
--- NOTE | 2017-10-09 01:19 | HP ---
Date/Time of Note Date/Time of Note DATE: 10/09/17 TIME: 01:04 Assessment/Plan VTE Prophylaxis VTE Prophylaxis Intervention: SCD's Lines/Catheters IV [facility] [facility] Assessment/Plan Chief Complaint/Hosp Course This is a 57-year-old female being admitted to the telemetry floor for: #1 chest pain: Rule out ACS: Patient does have risk factors of diabetes mellitus as well as a recent stroke. At the current time the first troponin was negative. Will continue to trend troponins. EKG did not show any acute ST or T-wave abnormalities. She recently had an echocardiogram within the last month, which had an ejection fraction of 55-60% with grade 1 diastolic dysfunction. Her cardiology if indicated. #2 generalized weakness: Patient does appear mildly dehydrated will provide her with some IV fluid hydration with normal saline. Her TSH was within acceptable values when it was checked 1 month ago. She is afebrile and normal white blood cell count. At the current time will optimize blood pressure control and blood sugar control. And workup for #1. #3 cerebrovascular accident: Within the last month patient experienced CVA with resulting in right-sided weakness. She has since been getting rehab which he states has been going well, though I did not assess gait her strength does appear to be poor improving on the right side. Will consult PT/OT for further rehabilitation during her hospital stay. #4 hypertension: At the current time we will continue home medications. And will attempt to optimize blood pressure #5 diabetes mellitus: We will hold metformin at this time. She is also on Lantus apparently. At the current time will put the patient on insulin sliding scale. I do feel we may be able to optimize her blood sugars with oral medications alone at this time, however I will defer this to the day team. #6 DVT and GI prophylaxis: SCDs, no GI prophylaxis indicated Further treatment strategy will be implemented as per the clinical course Problems: HPI/ROS Admit Date/Time Admit Date/Time Hx of Present Illness This is a 57-year-old female with recent diagnosis of ischemic stroke who presents with chest pain. She states over the last several days she has had throbbing pain in her chest that is pressure-like with associated palpitations and elevated blood pressure. She does also report that she has been feeling very tired lately with no energy. She does state that her physical therapy at the rehab has been going well and she is improving with her right-sided body function. She denies symptoms currently. She denies any fevers or chills. No headache though she does describe some heaviness when her blood pressure is elevated. She denies any fevers chills or cough, no pleuritic pain. Note during her previous admission to [facility] she was found to have an acute left basal ganglia stroke. her hemoglobin A1c was noted to be 7.2. She was initiated on aspirin 81 mg daily and Lipitor 80 mg daily. An echocardiogram showed normal findings. She was subsequently discharged to [facility]hab as she had some residual right-sided weakness for further rehabilitation. Allergies: NKDA Medications: See TAMMI BRO Const: As per HPI Eyes : No pain discharge or redness or change in visual acuity ENT: No pain, sore throat, congestion, congestion, dysphagia or discharge Respiratory: No shortness of breath, cough, sputum, wheezing, or pleuritic pain Cardiovascular: As per HPI GI : no change in appetite, abdominal pain, nausea, vomiting, diarrhea, constipation, or change in the color his stool Genitourinary: No dysuria, hematuria, flank pain , discharge or CVA tenderness Musculoskeletal: No joint pain, back pain, neck pain, restricted range of motion in neck or joints Skin: No rash, bruising or hives Neuro: As per HPI Endocrine: No polyuria, polydipsia, temperature intolerance Psych: No hallucination, depression, anxiety or suicidal ideation PMH/Family/Social Past Medical History Diabetes mellitus, recent CVA with residual right-sided weakness, hypertension Past Surgical History Past Surgical Hx: no surgical history Family History Significant Family History: no pertinent family hx Social History Alcohol Use: none Smoking Status: Never smoker Drug Use: none Exam/Review of Systems Vital Signs Vitals Vital Signs Date Time Temp Pulse Resp B/P Pulse Ox O2 Delivery O2 Flow Rate FiO2 10/09/17 00:56 99.4 71 18 129/92 100 Room Air Exam Exam General: She is a well-developed female lying in bed in no acute distress, she is slightly anxious. HEENT: Atraumatic, normocephalic. The pupils are equal, round and reactive. Extraocular motor are intact, mucous membranes appear dry Neck: Supple with full range of motion. No rigidity or meningismus Chest: Nontender Lungs: Clear to auscultation bilaterally no crackles rales or wheezing Heart: Normal S1-S2, Regular rhythm and rate. No overt murmurs appreciated on auscultation Abdomen: Soft , nontender, nondistended , bowel sounds are present. No guarding no rebound tenderness , No masses or organomegaly. No costovertebral temporal angle mass Extremities: Normal to inspection, no edema no cyanosis Neurologic: Normal mental status, speech normal, cranial nerves II through XII are intact, 5 out of 5 strength of left upper and lower extremities. 4 out of 5 strength of right upper and lower extremities. Additional Comments PROCEDURE: CT Brain without contrast. CLINICAL INDICATION: Headache. TECHNIQUE: A CT of the brain without contrast was performed utilizing axial sections from the skull base through the vertex. The patient was scanned without intravenous contrast enhancement. Sagittal and coronal reformatted images were obtained using the data from the axial images. Total exam DLP is 630.20 mGy-cm. CTDIvol is 43.77 mGy. One or more of the following dose reduction techniques were used: Automated exposure control, adjustment of the mA and/or kV according to patient size, use of iterative reconstruction technique. DICOM images are available. COMPARISON: MRI of the brain dated 09/18/2017. CT scan of the brain dated . FINDINGS: There is normal rodrigues-white matter differentiation. As seen previously, there is a region of decreased attenuation in the left basal ganglia consistent with a recent infarct. There is no hemorrhage at this site or elsewhere. There is no other recent infarct. There is mild enlargement of the ventricles and subarachnoid spaces consistent with atrophy. There is no intracranial hemorrhage or space-occupying lesion. There is no skull fracture or lytic lesion. IMPRESSION: 1. Unchanged appearance of recent infarct in the left basal ganglia. 2. Mild atrophy. 3. No intracranial hemorrhage. 4. Otherwise unremarkable noncontrast CT scan of the brain. RPTAT: QQ .Aayush John MD, MD Date Time Electronically viewed and signed by .Aayush John MD, on 10/08/2017 21:21 .R/ CC: ARTEM PAZ MD PROCEDURE: XR Chest. CLINICAL INDICATION: Chest pain. TECHNIQUE: Single frontal view. COMPARISON: None. FINDINGS: The lungs are clear. The heart size is normal. There is no pleural effusion. There is no pneumothorax. IMPRESSION: 1. Normal chest radiograph. RPTAT: QQ .Aayush John MD, MD Date Time Electronically viewed and signed by .Aayush John MD, MD on 10/08/2017 21:14 .R/ CC: ARTEM PAZ MD Labs Result Diagram: 10/08/17 2100 10/08/17 2100 Medications Medications Current Medications Ondansetron HCl (Zofran Tab) 4 mg Q6H PRN PO NAUSEA AND/OR VOMITING; Start at 23:00 Nitroglycerin (Nitroglycerin (Sl Tab) 0.4 Mg) 1 tab Q5M PRN SL CHEST PAIN; Start 10/08/17 at 23:00 Acetaminophen (Tylenol Tab) 650 mg Q6H PRN PO PAIN LEVEL 1-3 OR FEVER; Start 10/08/17 at 23:00 Morphine Sulfate (morphine) 2 mg Q4H PRN IV PAIN LEVEL 7-10; Start 10/08/17 at 23:00 Docusate Sodium (Colace) 100 mg Q12H PRN PO CONSTIPATION; Start 10/08/17 at 23 :00 Bisacodyl (Dulcolax) 5 mg DAILY PRN PO CONSTIPATION; Start 10/08/17 at 23:00 BLAZE SCOTT Oct 09, 2017 01:16
[2017-10-09] MEDS ORDERED: ZOLPIDEM 5 MG TAB PO PRN (01:30)
[2017-10-09] MEDS ORDERED: HYDROCODONE/APAP (5/325) TAB PO PRN (01:30)
[2017-10-09] MEDS: ACCU-CHEK XX SCH (02:00)
[2017-10-09] MEDS ORDERED: GLUCOSE GEL 15 GRAM TUBE PO PRN ×2 (02:00)
[2017-10-09] MEDS ORDERED: GLUCAGON 1 MG INJ IM PRN (02:00)
[2017-10-09] MEDS ORDERED: DEXTROSE 50% 50 ML SYRINGE IV PRN ×2 (02:00)
[2017-10-09] MEDS ORDERED: GLUCOSE GEL 15 GRAM TUBE BUCCAL PRN (02:00)
[2017-10-09 03:39] LABS: BASOPHIL # 0.1 10^3/ul (0.0-0.1); BASOPHILS % 0.7 % (0.0-2.0); EOSINOPHILS # 0.5 10^3/ul (0.0-0.5); EOSINOPHILS % 5.7 % (0.0-7.0); HEMATOCRIT 38.8 % (37.0-47.0); HEMOGLOBIN 13.3 g/dl (12.0-16.0); LYMPHOCYTES # 2.2 10^3/ul (0.8-2.9); LYMPHOCYTES % 23.5 % (15.0-51.0); MEAN CORPUSCULAR HEMOGLOBIN 29.6 pg (29.0-33.0); MEAN CORPUSCULAR HGB CONC 34.3 g/dl (32.0-37.0); MEAN CORPUSCULAR VOLUME 86.4 fl (82.0-101.0); MEAN PLATELET VOLUME 9.6 fl (7.4-10.4); MONOCYTE # 0.8 10^3/ul (0.3-0.9); MONOCYTES % 8.9 % (0.0-11.0); NEUTROPHIL # 5.6 10^3/ul (1.6-7.5); PLATELET COUNT 324 10^3/UL (140-415); RED BLOOD COUNT 4.49 10^6/ul (4.20-5.40); RED CELL DISTRIBUTION WIDTH 11.2 % (11.5-14.5); WHITE BLOOD COUNT 9.2 10^3/ul (4.8-10.8)
[2017-10-09 04:02] LABS: ALBUMIN 3.8 g/dl (3.3-4.9); ALBUMIN/GLOBULIN RATIO 1.35; BILIRUBIN,INDIRECT 0.2 mg/dl (0-1.1); BILIRUBIN,TOTAL 0.2 mg/dl (0.2-1.3); CALCIUM 9.2 mg/dl (8.4-10.2); CREATINE KINASE 24 IU/L (23-200); CREATININE 0.48 mg/dl (0.44-1.00); MAGNESIUM 1.9 mg/dl (1.7-2.5); POTASSIUM 3.7 mmol/L (3.5-5.1); TOTAL PROTEIN 6.6 g/dl (6.1-8.1)
[2017-10-09 04:14] LABS: CK-MB 0.37 ng/ml (0.0-2.4)
[2017-10-09 04:20] LABS: TROPONIN-I < 0.012 ng/ml (0.00-0.12)
[2017-10-09] MEDS ORDERED: hydrALAzine 20 MG INJ IV PRN (07:00)
[2017-10-09] MEDS: INSULIN ASPART [NOVOLOG] 3 ML PEN SC SCH ×4 (07:55→20:28)
[2017-10-09] MEDS: ASPIRIN (EC) 81 MG TAB PO SCH (08:07)
--- NOTE | 2017-10-09 10:34 | CONS ---
Date/Time of Note Date/Time of Note DATE: 10/09/17 TIME: 10:29 Assessment/Plan Assessment/Plan Chief Complaint/Hosp Course Chest pain: Mostly atypical but some exertional component as well. Trops negative, EKG unremarkable. She certainly has risk factors for CAD and needs ischemia eval/risk stratification. Cardiac CT is appropriate for more definitive anatomic eval. DM HTN HL Recent CVA with right sided weakness -cardiac CT -continue ASA, statin -restart lisinopril after CT -no echo as recently done and normal Problems: Consultation Date/Type/Reason Admit Date/Time Date of Consultation: Oct 09, 2017 Type of Consultation: Cardiology Reason for Consultation Chest pain Referring Provider: BLAZE SCOTT Hx of Present Illness 57 yo F with a h/o DM, HTN, HL, recent CVA (3 weeks ago) with right weakness, who was transferred from rehab due to chest pain. The pt notes that after her stroke she was recovering well but for the past week she has been having episodes of chest pressure. The episodes are mostly at nights and she feels her heart beating fast and hard. She also has headaches, nausea/vomiting. Today she ambulated with PT and had the chest pressure again. Prior to her stroke, she was unaware of any medical issues and denies prior heart disease. No orthopnea, PND, edema. per HPI Past Medical History per HPI Past Surgical History Past Surgical Hx: no surgical history Social History Alcohol Use: none Smoking Status: Never smoker Drug Use: none Exam/Review of Systems Vital Signs Vitals Vital Signs Date Time Temp Pulse Resp B/P Pulse Ox O2 Delivery O2 Flow Rate FiO2 10/09/17 08:08 79 10/09/17 08:00 98.7 18 135/74 96 10/09/17 00:56 Room Air Exam Constitutional: alert, oriented Psych: nl mood/affect, no complaints Head: atraumatic, normocephalic Eyes: nl conjunctiva ENMT: nl external ears & nose Neck: supple, No jvd Respiratory: clear to auscultation, No crackles/rales Cardiovascular: regular rate and rhythm, No edema, No systolic murmur Gastrointestinal: non-tender, soft, No distended Neurological: nl mental status, nl speech Skin: No rash or lesions Results Result Diagram: 10/09/17 03310/09/17 0330 Results 24 hrs Laboratory Tests Test 10/08/17 21:00 10/09/17 03:30 10/09/17 08:06 White Blood Count 9.9 9.2 Red Blood Count 4.75 4.49 Hemoglobin 14.1 13.3 Hematocrit 41.0 38.8 Mean Corpuscular Volume 86.3 86.4 Mean Corpuscular Hemoglobin 29.7 29.6 Mean Corpuscular Hemoglobin Concent 34.4 34.3 Red Cell Distribution Width 11.2 L 11.2 L Platelet Count 327 324 Mean Platelet Volume 9.9 9.6 Neutrophils % 64.5 61.0 Lymphocytes % 22.4 23.5 Monocytes % 7.7 8.9 Eosinophils % 4.4 5.7 Basophils % 0.7 0.7 Nucleated Red Blood Cells % 0.0 0.0 Neutrophils # 6.4 5.6 Lymphocytes # 2.2 2.2 Monocytes # 0.8 0.8 Eosinophils # 0.4 0.5 Basophils # 0.1 0.1 Nucleated Red Blood Cells # 0.0 0.0 Sodium Level 142 145 H Potassium Level 3.7 3.7 Chloride Level 104 107 Carbon Dioxide Level 24 28 Anion Gap 18 H 14 Blood Urea Nitrogen 12 11 Creatinine 0.50 0.48 Glucose Level 179 120 # Calcium Level 9.5 9.2 Troponin I < 0.012 < 0.012 Magnesium Level 1.9 Total Bilirubin 0.2 Direct Bilirubin 0.00 Indirect Bilirubin 0.2 Aspartate Amino Transf (AST/SGOT) 17 Alanine Aminotransferase (ALT/SGPT) 37 Alkaline Phosphatase 54 Creatine Kinase 24 Creatine Kinase Index 1.5 Creatinine Kinase MB (Mass) 0.37 Total Protein 6.6 Albumin 3.8 Globulin 2.80 Albumin/Globulin Ratio 1.35 Bedside Glucose 120 Medications Medications Current Medications Ondansetron HCl (Zofran Tab) 4 mg Q6H PRN PO NAUSEA AND/OR VOMITING; Start at 23:00 Nitroglycerin (Nitroglycerin (Sl Tab) 0.4 Mg) 1 tab Q5M PRN SL CHEST PAIN; Start 10/08/17 at 23:00 Acetaminophen (Tylenol Tab) 650 mg Q6H PRN PO PAIN LEVEL 1-3 OR FEVER; Start 10/08/17 at 23:00 Morphine Sulfate (morphine) 2 mg Q4H PRN IV PAIN LEVEL 7-10; Start 10/08/17 at 23:00 Docusate Sodium (Colace) 100 mg Q12H PRN PO CONSTIPATION; Start 10/08/17 at 23 :00 Bisacodyl (Dulcolax) 5 mg DAILY PRN PO CONSTIPATION; Start 10/08/17 at 23:00 Aspirin (Halfprin) 81 mg DAILY PO Last administered on 10/09/17t 08:07; Admin Dose 81 MG; Start 10/09/17 at 09:00 Atorvastatin Calcium (Lipitor) 80 mg HS PO ; Start 10/09/17 at 21:00 Acetaminophen/ Hydrocodone Bitart ([place] (5/325)) 1 tab Q6H PRN PO MODERATE PAIN LEVEL 4-6; Start 10/09/17 at 01:30 Zolpidem Tartrate (Ambien) 5 mg QHS PRN PO SLEEP; Start 10/09/17 at 01:30 Diagnostic Test (Pha) (Accu-Chek) 1 ea 02 XX ; Start 10/09/17 at 02:00 Miscellaneous Information 1 ea NOTE XX ; Start 10/09/17 at 02:00 Glucose (Glutose) 15 gm Q15M PRN PO DECREASED GLUCOSE; Start 10/09/17 at 02:00 Glucose (Glutose) 22.5 gm Q15M PRN PO DECREASED GLUCOSE; Start 10/09/17 at 02: 00 Dextrose (D50w Syringe) 25 ml Q15M PRN IV DECREASED GLUCOSE; Start 10/09/17 at 02:00 Dextrose (D50w Syringe) 50 ml Q15M PRN IV DECREASED GLUCOSE; Start 10/09/17 at 02:00 Glucagon (Glucagen) 1 mg Q15M PRN IM DECREASED GLUCOSE; Start 10/09/17 at 02: 00 Glucose (Glutose) 15 gm Q15M PRN BUCCAL DECREASED GLUCOSE; Start 10/09/17 at 02:00 Hydralazine HCl (Apresoline) 10 mg Q6H PRN IV SBP abve 160; Start 10/09/17 at 07:00 ASCENCION DOAN Oct 09, 2017 10:34
[2017-10-09 11:28] LABS: CREATINE KINASE 28 IU/L (23-200)
[2017-10-09 11:40] LABS: CK-MB 0.31 ng/ml (0.0-2.4)
[2017-10-09 11:44] LABS: TROPONIN-I < 0.012 ng/ml (0.00-0.12)
--- NOTE | 2017-10-09 12:34 | PN ---
Date/Time of Note Date/Time of Note DATE: 10/09/17 TIME: 12:34 Assessment/Plan VTE Prophylaxis VTE Prophylaxis Intervention: ambulation Lines/Catheters IV [facility]ter Type (from [facility]): [place] [facility] Urinary Cath still in place: No Assessment/Plan Chief Complaint/Hosp Course 57-year-old female with a recent CVA 3 weeks ago, type 2 diabetes,, who was transferred from a rehabilitation unit for evaluation of chest pain. 1. Chest pain, atypical. Negative serial troponin and EKG without any evidence of ischemia. -Patient is scheduled for cardiac catheterization secondary to her high risk factors. -Continue aspirin, nitro sublingual PRN and morphine prn. 2. Type 2 diabetes. -Accu-Cheks/insulin while in-house. Will consider Metformin upon discharge. 3. Essential hypertension. -Patient is status post 1 dose of beta-basilia today. We will follow-up with cardiology recommendation on starting her on an antihypertensive regimen after angiogram. 4. Dyslipidemia. -On statin therapy 5. Recent history of CVA, with right-sided weakness. -Continue with physical therapy evaluation. Most likely, patient can be discharged home once she is medically cleared without any further rehabilitation. Plan: Follow-up with cardiology recommendations. Patient was seen in collaboration with Dr. St. Problems: Subjective 24 Hr Interval Summary Free Text/Dictation Patient lying in bed. She appears slightly anxious. She also reports intermittent palpitations without chest pain. She denied any nausea, vomiting or abdominal discomfort. Vision is scheduled for cardiac catheterization today. Exam/Review of Systems Vital Signs Vitals Vital Signs Date Time Temp Pulse Resp B/P Pulse Ox O2 Delivery O2 Flow Rate FiO2 10/09/17 12:09 95 10/09/17 12:01 98.4 18 138/71 97 10/09/17 00:56 Room Air Exam General: Well developed,adequately built, not in any acute distress . HEENT: Normocephalic, Atraumatic, No laceration or hematoma; Eyes: PEERL, Conjunctiva clear, Anicteric sclera Neck: Supple without any lymphadenopathy, nontender, no JVD, no carotid bruits, trachea midline, no thyromegaly Cardiac: S1, S2 auscultated, regular rhythm and rate, no mumurs or gallop Pulmonary: Normal respiratory effort. Chest clear to auscultation bilaterally, no adventitious breath sounds GI: Abdomen normal to inspection. Soft, non tender, non- distended, no masses, no rebound tenderness or guarding. Bowel sounds active on all four quadrants Genitourinary: Deferred Extremities: Mild weakness to right upper and lower extremity.No cyanosis, clubbing, or edema. Pulses [2+] bilaterally. Full ROM on all four extremities. No focal weakness appreciated. Neurologic: Alert to person, place, time, and situation. Affect appropriate, intact sensation. Skin: Clean,dry, and intact. No ecchymosis, no rashes, or lesions Results Result Diagram: 10/09/17 0330 10/09/17 033 Results 24 hrs Laboratory Tests Test 10/08/17 21:00 10/09/17 03:30 10/09/17 08:06 10/09/17 10:20 White Blood Count 9.9 9.2 Red Blood Count 4.75 4.49 Hemoglobin 14.1 13.3 Hematocrit 41.0 38.8 Mean Corpuscular Volume 86.3 86.4 Mean Corpuscular Hemoglobin 29.7 29.6 Mean Corpuscular Hemoglobin Concent 34.4 34.3 Red Cell Distribution Width 11.2 L 11.2 L Platelet Count 327 324 Mean Platelet Volume 9.9 9.6 Neutrophils % 64.5 61.0 Lymphocytes % 22.4 23.5 Monocytes % 7.7 8.9 Eosinophils % 4.4 5.7 Basophils % 0.7 0.7 Nucleated Red Blood Cells % 0.0 0.0 Neutrophils # 6.4 5.6 Lymphocytes # 2.2 2.2 Monocytes # 0.8 0.8 Eosinophils # 0.4 0.5 Basophils # 0.1 0.1 Nucleated Red Blood Cells # 0.0 0.0 Sodium Level 142 145 H Potassium Level 3.7 3.7 Chloride Level 104 107 Carbon Dioxide Level 24 28 Anion Gap 18 H 14 Blood Urea Nitrogen 12 11 Creatinine 0.50 0.48 Glucose Level 179 120 # Calcium Level 9.5 9.2 Troponin I < 0.012 < 0.012 < 0.012 Magnesium Level 1.9 Total Bilirubin 0.2 Direct Bilirubin 0.00 Indirect Bilirubin 0.2 Aspartate Amino Transf (AST/SGOT) 17 Alanine Aminotransferase (ALT/SGPT) 37 Alkaline Phosphatase 54 Creatine Kinase 24 28 Creatine Kinase Index 1.5 1.1 Creatinine Kinase MB (Mass) 0.37 0.31 Total Protein 6.6 Albumin 3.8 Globulin 2.80 Albumin/Globulin Ratio 1.35 Bedside Glucose 120 Test 10/09/17 12:22 Bedside Glucose 101 Medications Medications Current Medications Ondansetron HCl (Zofran Tab) 4 mg Q6H PRN PO NAUSEA AND/OR VOMITING; Start at 23:00 Nitroglycerin (Nitroglycerin (Sl Tab) 0.4 Mg) 1 tab Q5M PRN SL CHEST PAIN; Start 10/08/17 at 23:00 Acetaminophen (Tylenol Tab) 650 mg Q6H PRN PO PAIN LEVEL 1-3 OR FEVER; Start 10/08/17 at 23:00 Morphine Sulfate (morphine) 2 mg Q4H PRN IV PAIN LEVEL 7-10; Start 10/08/17 at 23:00 Docusate Sodium (Colace) 100 mg Q12H PRN PO CONSTIPATION; Start 10/08/17 at 23 :00 Bisacodyl (Dulcolax) 5 mg DAILY PRN PO CONSTIPATION; Start 10/08/17 at 23:00 Aspirin (Halfprin) 81 mg DAILY PO Last administered on 10/09/17t 08:07; Admin Dose 81 MG; Start 10/09/17 at 09:00 Atorvastatin Calcium (Lipitor) 80 mg HS PO ; Start 10/09/17 at 21:00 Acetaminophen/ Hydrocodone Bitart ([place] (5/325)) 1 tab Q6H PRN PO MODERATE PAIN LEVEL 4-6; Start 10/09/17 at 01:30 Zolpidem Tartrate (Ambien) 5 mg QHS PRN PO SLEEP; Start 10/09/17 at 01:30 Diagnostic Test (Pha) (Accu-Chek) 1 ea 02 XX ; Start 10/09/17 at 02:00 Miscellaneous Information 1 ea NOTE XX ; Start 10/09/17 at 02:00 Glucose (Glutose) 15 gm Q15M PRN PO DECREASED GLUCOSE; Start 10/09/17 at 02:00 Glucose (Glutose) 22.5 gm Q15M PRN PO DECREASED GLUCOSE; Start 10/09/17 at 02: 00 Dextrose (D50w Syringe) 25 ml Q15M PRN IV DECREASED GLUCOSE; Start 10/09/17 at 02:00 Dextrose (D50w Syringe) 50 ml Q15M PRN IV DECREASED GLUCOSE; Start 10/09/17 at 02:00 Glucagon (Glucagen) 1 mg Q15M PRN IM DECREASED GLUCOSE; Start 10/09/17 at 02: 00 Glucose (Glutose) 15 gm Q15M PRN BUCCAL DECREASED GLUCOSE; Start 10/09/17 at 02:00 Hydralazine HCl (Apresoline) 10 mg Q6H PRN IV SBP abve 160; Start 10/09/17 at 07:00 PINEDA ERAZO NP Oct 09, 2017 12:34
[2017-10-09] MEDS ORDERED: ALPRAZOLAM 0.5 MG TAB PO PRN (13:00)
[2017-10-09] MEDS ORDERED: METOPROLOL 25 MG TAB PO ONE (13:00)
[2017-10-09] MEDS ORDERED: IOHEXOL 100 ML ONE (16:31)
[2017-10-09] MEDS ORDERED: SOD CHLORIDE 0.9% 100 ML ONE (16:31)
[2017-10-09] MEDS ORDERED: METOPROLOL 5 MG INJ ONE (16:37)
--- NOTE | 2017-10-09 18:25 | RADRPT ---
PROCEDURE: CTA of the heart and coronary arteries. CTA of the chest with contrast CLINICAL INDICATION: Chest pain COMPARISON: No previous relevant images are available for comparison. TECHNIQUE: CTA of the chest and CTA of the heart and coronary arteries with multiphasic ECG-gated vo lumetric acquisition performed with intravenous contrast on a high-resolution multi detector scanner with multiphasic reconstructions. Multiplanar reconstructions, three-dimensional reconstructions, a s well as maximal intensity projection images are produced and reviewed. One or more of the followin g dose reduction techniques were used: Automated exposure control; Adjustment of the mA and/or kV ac cording to patient size; Use of iterative reconstruction technique; ECG dose modulation. CTDI = 8, 4 , 69 mGy. DLP = 2081 mGy-cm. DICOM images are available. Stenosis classification of vessels greater than 1.5 mm in diameter: None 0%, Minimal 1-24%, Mild 25- 49%, Moderate 50-69%, Severe 70-99%, Occluded 100% CONTRAST: 100 mL of Omnipaque 350 intravenously without adverse event. FINDINGS: Overall exam quality and angiographic enhancement: Excellent angiographic enhancement. Images partia lly degraded due to irregular heart rate. Origins and course of the coronary arteries: Normal. Coronary artery system dominance pattern: Right. Total calcium score: 11.7 Nondiagnostic segments due to artifacts: None. RCA: Patent with no evidence of plaque. PLB: Patent with no evidence of plaque. PDA: Patent with no evidence of plaque. LM: Small calcified plaque in the proximal segment of the vessel does not produce any stenosis. Supe rficial bridging is present within the mid segment of the vessel over a length of 25 mm and a depth of less than 1.5 mm. Distal segment of vessel is widely patent. RI: Patent with no evidence of plaque. LAD: Patent with no evidence of plaque. Ds: Patent with no evidence of plaque. LCX: Proximal segment widely patent. Small calcified plaque in the midsegment of the vessel produces no stenosis. Distal segment of vessel is small in caliber but appears widely patent. OMs: Small-caliber vessels appear widely patent. Pericardium: Normal. Pericardial effusion: None. Heart size: Normal. Aortic valve: Trileaflet morphology. Normal systolic excursion. Normal diastolic coaptation. No evid ence of thickening or calcification. Mitral valve: Normal morphology. No evidence of prolapse on systolic images. No evidence of thickeni ng or calcification. Myocardial attenuation: Normal. No abnormal areas of thickening or thinning. Intracardiac enhancement: No left-sided filling defects to suggest the presence of mass or thrombus . Left atrial appendage is well opacified. Extracardiac findings: Visualized thoracic aorta: Dilatation of the mid ascending thoracic aorta measuring 3.9 cm. Minimal atherosclerotic changes are present. Pulmonary arteries: Normal caliber. No evidence of central filling defect. Pulmonary veins: Conventional pulmonary venous return. Lungs: No acute appearing air space infiltrates. No suspicious pulmonary nodules. Visualized mediastinum: No mass or fluid collection. No lymphadenopathy. Visualized osseous structures: Normal. IMPRESSION: Total calcium score: 11.7 Nondiagnostic segments due to artifacts: None. RCA: Patent with no evidence of plaque. PLB: Patent with no evidence of plaque. PDA: Patent with no evidence of plaque. LM: Small calcified plaque in the proximal segment of the vessel does not produce any stenosis. Supe rficial bridging is present within the mid segment of the vessel over a length of 25 mm and a depth of less than 1.5 mm. Distal segment of vessel is widely patent. RI: Patent with no evidence of plaque. LAD: Patent with no evidence of plaque. Ds: Patent with no evidence of plaque. LCX: Proximal segment widely patent. Small calcified plaque in the midsegment of the vessel produces no stenosis. Distal segment of vessel is small in caliber but appears widely patent. OMs: Small-caliber vessels appear widely patent. Dilatation of the mid ascending thoracic aorta measuring 3.9 cm. RPTAT: AADD .Flaquito Archuleta MD, Date Time Electronically viewed and signed by .Flaquito Archuleta MD, MD on 10/09/2017 18:24 .B/
[2017-10-09] MEDS ORDERED: ATORVASTATIN 80 MG TAB PO SCH (21:00)
[2017-10-10] VITALS (7 sets, daily range): BP systolic 123–128; BP diastolic 73–94; PULSE 69–95; RESP 18–20
[2017-10-10] MEDS: ACCU-CHEK XX SCH (02:00)
[2017-10-10] MEDS: INSULIN ASPART [NOVOLOG] 3 ML PEN SC SCH ×2 (07:55→11:50)
[2017-10-10] MEDS: ASPIRIN (EC) 81 MG TAB PO SCH (08:45)
--- NOTE | 2017-10-10 09:55 | PDOCDIS ---
Discharge Instructions CONDITION Patient Condition: Stable HOME CARE INSTRUCTIONS: Your diet recommendation is: Carbohydrate controlled, low-cholesterol diet FOLLOW UP/APPOINTMENTS Follow-up Plan 1.Follow up with primary care physician in 1 week If you don't have one please let someone know, we can give you resources that may help you pick one. You may also call your insurance company to assign one to you. Review your medication list with your nurse before leaving and if you need new prescriptions please let your nurse know. I may have made changes to your home medications or given you new prescriptions, please let your primary doctor know as well. Stay compliant with your medications and report any side effects to your PCP or pharmacist. Return to the ER if you have any concerns and cannot reach your doctors or call your insurance company, they usually have a nurse that can help you. 2. Call 911 or go to the nearest emergency room if experiencing loss of consciousness, dizziness, chest pain, shortness of breath, vomiting/abdominal pain, speech difficulties, motor weakness or any unusual symptoms. PINEDA ERAZO NP Oct 10, 2017 09:55
[2017-10-10] MEDS ORDERED: ASPI81TA3 PO (10:01)
[2017-10-10] MEDS ORDERED: ATOR40TA68 PO (10:01)
[2017-10-10] MEDS ORDERED: LISI10TA2 PO (10:01)
[2017-10-10] MEDS ORDERED: METF500T4 PO (10:01)
[2017-10-10] MEDS ORDERED: ALPR0.5T PO (10:01)
--- NOTE | 2017-10-10 10:02 | DS ---
Date/Time of Note Date/Time of Note DATE: 10/10/17 TIME: 10:02 Discharge Summary Admission/Discharge Info Admit Date/Time Oct 08, 2017 at 22:02 Discharge Date/Time Discharge Diagnosis 1. Atypical chest pain, noncardiac. Likely her symptoms are secondary to anxiety induced. Resolved. 2. Type 2 diabetes. On metformin. 3. Essential hypertension. On lisinopril. 4. Dyslipidemia. On statin. 5. Recent history of CVA, with right-sided weakness. Consults , cardiology Procedures 10/09/2017. CTA heart and coronary arteries. IMPRESSION: Total calcium score: 11.7 Nondiagnostic segments due to artifacts: None. RCA: Patent with no evidence of plaque. PLB: Patent with no evidence of plaque. PDA: Patent with no evidence of plaque. LM: Small calcified plaque in the proximal segment of the vessel does not produce any stenosis. Superficial bridging is present within the mid segment of the vessel over a length of 25 mm and a depth of less than 1.5 mm. Distal segment of vessel is widely patent. RI: Patent with no evidence of plaque. LAD: Patent with no evidence of plaque. Ds: Patent with no evidence of plaque. LCX: Proximal segment widely patent. Small calcified plaque in the midsegment of the vessel produces no stenosis. Distal segment of vessel is small in caliber but appears widely patent. OMs: Small-caliber vessels appear widely patent. Dilatation of the mid ascending thoracic aorta measuring 3.9 cm. Hospital Course This is a 57-year-old female with a past medical history of type 2 diabetes, essential hypertension, hyperlipidemia, recent CVA 3 weeks ago with right-sided weakness, who was transferred from a rehabilitation center to emergency room for evaluation of sudden onset of chest pressure and palpitation. Patient did not have any other constitutional symptoms. She had negative troponin on arrival. Patient was admitted to rule out acute coronary syndrome. She was continued on aspirin, and statin. She was continued on Accu-Cheks and insulin for diabetes. Patient had 3 serial troponins and serial EKG negative for any ischemia. Patient was evaluated by operations team leader. She had CT of the heart and coronary arteries on 10/09/2017. Overall exam revealed no evidence of plaque or ischemia. Patient is also anxious. At this time, most likely etiology of her chest pressure secondary to anxiety which is now resolved. As per cardiology, there is no further inpatient workup indicated as cardiac CT is normal and her chest pain is most likely noncardiac and atypical. She was recommended to continue aspirin, statin, metformin and lisinopril and outpatient follow-up. Disposition: Home. Patient verbalized discharge instructions. At this time, I would Appreciate for seeing the patient and providing medical recommendation. Approximately 60 minutes was spent in coordinating the discharge on this patient. Patient is seen in collaboration with . Home Meds Active Scripts Alprazolam* (Xanax*) 0.5 Mg Tab, 0.5 MG PO BID Y for ANXIETY, #30 TAB Prov:ERAZO,PINEDA V. KEELER POLYGRAPH OPERATOR 10/10/17 Lisinopril* (Lisinopril*) 10 Mg Tablet, 10 MG PO DAILY, #30 TAB Prov:ERAZO,PINEDA V. KEELER POLYGRAPH OPERATOR 10/10/17 Aspirin* (Aspirin* Chew) 81 Mg Tab.chew, 81 MG PO DAILY, #30 TAB.CHEW Prov:ERAZO,PINEDA V. KEELER POLYGRAPH OPERATOR 10/10/17 Metformin* (Glucophage*) 500 Mg Tab, 500 MG PO WITH BREAKFAST DINNE, #30 TAB Prov:ERAZO,PINEDA V. KEELER POLYGRAPH OPERATOR 10/10/17 Atorvastatin* (Atorvastatin*) 40 Mg Tablet, 40 MG PO QHS, #30 TAB Prov:ERAZO,PINEDA V. KEELER POLYGRAPH OPERATOR 10/10/17 Discontinued Scripts Metformin* (Glucophage*) 500 Mg Tab, 500 MG PO WITH BREAKFAST DINNE, #30 TAB Prov:ERAZO,PINEDA V. KEELER POLYGRAPH OPERATOR 09/20/17 Insulin Aspart* (Novolog Insulin Pen*) 100 Unit/Ml Soln, 0 UNIT SC WITH MEALS BEDTIME, #1 Prov:ERAZO,PINEDA V. KEELER POLYGRAPH OPERATOR 09/20/17 Zolpidem Tartrate (Ambien Anival) 5 Mg Tablet, 5 MG PO QHS Y for SLEEP, #30 TAB Prov:ERAZO,PINEDA V. KEELER POLYGRAPH OPERATOR 09/20/17 Hydrocodone Bit-Acetaminophen (Hydrocodone Bit-APAP) 5-325MG Tablet, 1 TAB PO Q6H Y for MODERATE PAIN LEVEL 4-6, #30 TAB Prov:ERAZO,PINEDA V. KEELER POLYGRAPH OPERATOR 09/20/17 Aspirin* (Aspirin* EC) 81 Mg Tablet.dr, 81 MG PO DAILY, #30 TAB Prov:PINEDA ERAZO NP 09/20/17 Atorvastatin* (Atorvastatin*) 80 Mg Tablet, 80 MG PO HS, #60 TAB Prov:PINEDA ERAZO NP 09/20/17 Follow-up Plan 1.Follow up with primary care physician in 1 week If you don't have one please let someone know, we can give you resources that may help you pick one. You may also call your insurance company to assign one to you. Review your medication list with your nurse before leaving and if you need new prescriptions please let your nurse know. I may have made changes to your home medications or given you new prescriptions, please let your primary doctor know as well. Stay compliant with your medications and report any side effects to your PCP or pharmacist. Return to the ER if you have any concerns and cannot reach your doctors or call your insurance company, they usually have a nurse that can help you. 2. Call 911 or go to the nearest emergency room if experiencing loss of consciousness, dizziness, chest pain, shortness of breath, vomiting/abdominal pain, speech difficulties, motor weakness or any unusual symptoms. Primary Care Provider Not On Staff Doctor Pending Labs Laboratory Tests Test 10/09/17 10:20 10/09/17 12:22 10/09/17 16:00 10/09/17 18:06 Creatine Kinase 28IU/L (23-200) Creatine Kinase Index 1.1 Creatinine Kinase MB (Mass) 0.31ng/ml (0.0-2.4) Troponin I < 0.012ng/ml (0.00-0.12) Bedside Glucose 101mg/dL (70-220) 106mg/dL (70-220) 117mg/dL (70-220) Test 10/09/17 20:25 10/10/17 08:15 Bedside Glucose 139mg/dL (70-220) 115mg/dL (70-220) PINEDA ERAZO NP Oct 10, 2017 10:02
--- NOTE | 2017-10-10 13:32 | CONS ---
Date/Time of Note Date/Time of Note DATE: 10/10/17 TIME: 13:31 Assessment/Plan Assessment/Plan Chief Complaint/Hosp Course Chest pain: Atypical. Cardiac CT normal DM HTN HL Recent CVA with right sided weakness -ok for d/c -continue ASA, statin -lisinopril 10mg Problems: Consultation Date/Type/Reason Admit Date/Time Oct 08, 2017 at 22:02 Initial Consult Date 10/09/17 Type of Consultation: Cardiology Referring Provider: BLAZE SCOTT 24 HR Interval Summary Free Text/Dictation No o/n events. No further chest pain Exam/Review of Systems Vital Signs Vitals Vital Signs Date Time Temp Pulse Resp B/P Pulse Ox O2 Delivery O2 Flow Rate FiO2 10/10/17 12:02 95 10/10/17 11:32 98.5 20 128/94 97 10/09/17 00:56 Room Air Intake and Output 10/09/17 10/09/17 10/10/17 15:00 23:00 07:00 Intake Total 0 ml 220 ml 60 ml Output Total 1 ml Balance -1 ml 220 ml 60 ml Exam Constitutional: alert, oriented Psych: nl mood/affect, no complaints Head: atraumatic, normocephalic Neck: supple, No jvd Respiratory: clear to auscultation, No crackles/rales Cardiovascular: regular rate and rhythm, No edema Gastrointestinal: non-tender, soft Neurological: nl mental status, nl speech Results Result Diagram: 10/09/17 0330 10/09/17 0330 Results 24 hrs Laboratory Tests Test 10/09/17 16:00 10/09/17 18:06 10/09/17 20:25 10/10/17 08:15 Bedside Glucose 106 117 139 115 Test 10/10/17 12:13 Bedside Glucose 102 Medications Medications Current Medications Ondansetron HCl (Zofran Tab) 4 mg Q6H PRN PO NAUSEA AND/OR VOMITING; Start at 23:00 Nitroglycerin (Nitroglycerin (Sl Tab) 0.4 Mg) 1 tab Q5M PRN SL CHEST PAIN; Start 10/08/17 at 23:00 Acetaminophen (Tylenol Tab) 650 mg Q6H PRN PO PAIN LEVEL 1-3 OR FEVER; Start 10/08/17 at 23:00 Morphine Sulfate (morphine) 2 mg Q4H PRN IV PAIN LEVEL 7-10; Start 10/08/17 at 23:00 Docusate Sodium (Colace) 100 mg Q12H PRN PO CONSTIPATION; Start 10/08/17 at 23 :00 Bisacodyl (Dulcolax) 5 mg DAILY PRN PO CONSTIPATION; Start 10/08/17 at 23:00 Aspirin (Halfprin) 81 mg DAILY PO Last administered on 10/10/17 08:45; Admin Dose 81 MG; Start 10/09/17 at 09:00 Atorvastatin Calcium (Lipitor) 80 mg HS PO Last administered on 10/09/17 20: 40; Admin Dose 80 MG; Start 10/09/17 at 21:00 Acetaminophen/ Hydrocodone Bitart ([place] (5/325)) 1 tab Q6H PRN PO MODERATE PAIN LEVEL 4-6; Start 10/09/17 at 01:30 Zolpidem Tartrate (Ambien) 5 mg QHS PRN PO SLEEP; Start 10/09/17 at 01:30 Diagnostic Test (Pha) (Accu-Chek) 1 ea 02 XX ; Start 10/09/17 at 02:00 Miscellaneous Information 1 ea NOTE XX ; Start 10/09/17 at 02:00 Glucose (Glutose) 15 gm Q15M PRN PO DECREASED GLUCOSE; Start 10/09/17 at 02:00 Glucose (Glutose) 22.5 gm Q15M PRN PO DECREASED GLUCOSE; Start 10/09/17 at 02: 00 Dextrose (D50w Syringe) 25 ml Q15M PRN IV DECREASED GLUCOSE; Start 10/09/17 at 02:00 Dextrose (D50w Syringe) 50 ml Q15M PRN IV DECREASED GLUCOSE; Start 10/09/17 at 02:00 Glucagon (Glucagen) 1 mg Q15M PRN IM DECREASED GLUCOSE; Start 10/09/17 at 02: 00 Glucose (Glutose) 15 gm Q15M PRN BUCCAL DECREASED GLUCOSE; Start 10/09/17 at 02:00 Hydralazine HCl (Apresoline) 10 mg Q6H PRN IV SBP abve 160; Start 10/09/17 at 07:00 Alprazolam (Xanax) 0.5 mg Q12H PRN PO ANXIETY; Start 10/09/17 at 13:00 ASCENCION DOAN Oct 10, 2017 13:32
== END 2017-10-10 15:50 | disposition home or self-care (01) ==
LOC: E/R 20:25 → TEL 22:02
PROVIDERS: ADMIT Family Medicine; ATTEND Family Medicine
DX: R07.89 Other chest pain (principal); E11.9 Type 2 diabetes mellitus without complications; Z79.4 Long term (current) use of insulin; I10 Essential (primary) hypertension; E78.5 Hyperlipidemia, unspecified; I69.351 Hemiplegia and hemiparesis following cerebral infarction affecting right dominant side; Z79.82 Long term (current) use of aspirin
CPT/HCPCS: 36415; 70450; 71010; 75574; 80048; 80053; 82550; 82553; 82962; 83735; 84484; 85025; 93005; 97116; 97163; 97166; J1815; Q9967; Z7500; Z7502; Z7610; G0378